=== PATIENT | female | born 1955 | race Caucasian/White ===

== ENCOUNTER 2016-11-20 13:44 | Observation (INO) | payer BC ==
--- NOTE | 2016-11-20 16:22 | ED ---
General Adult HPI - General Chief complaint: Skin/Abscess/Foreign Body Stated complaint: cellulitis Time Seen by Provider: 11/20/16 15:37 Source: patient, RN notes reviewed Mode of arrival: ambulatory Limitations: no limitations - History of Present Illness Initial comments: This is a 61-year-old female who presents with redness, swelling and warmth to the right lower extremity and groin area 2 weeks. Patient states she has been on 3 courses of antibiotics including azithromycin, Augmentin and Keflex but the rash continues to get worse. Patient states this rash is painful especially when walking. Patient states this all started about 2 weeks ago with some right knee pain and redness that she attributed to a past meniscal tear in 2008. Patient states the redness and swelling only got worse after this. Patient states about 4-5 months ago she was scratched by a cat, but this healed completely. Patient denies any ALLERGIES to medications except for acyclovir and cortisone, but she has never had a reaction like this before and has not recently taken these medications. Patient notices a difference in sensation between the right and left lower extremities but states she still has sensation to both lower extremities. Patient denies any recent fever, chills, shortness breath, chest pain, abdominal pain, nausea/vomiting/diarrhea, back pain, numbness, tingling, weakness, hematuria, headache, or visual changes, or any other complaints. - Related Data Home Medications Medication Instructions Recorded Confirmed ALPRAZolam [Xanax] 0.25 mg PO TID PRN 11/20/16 11/20/16 Cephalexin [Keflex] 500 mg PO BID 11/20/16 11/20/16 HYDROcodone/APAP 10-325MG [[place] 1 tab PO TID PRN 11/20/16 11/20/16 10-325] Allergies Allergy/AdvReac Type Severity Reaction Status Date / Time acyclovir [From Zovirax] Allergy Dyspnea Verified 11/20/16 15:57 cortisone Allergy Swelling Verified 11/20/16 15:57 Review of Systems ROS Statement: Those systems with pertinent positive or pertinent negative responses have been documented in the HPI. ROS Other: All systems not noted in ROS Statement are negative. Past Medical History Past Medical History: No Reported History Additional Past Medical History / Comment(s): osteopenia History of Any Multi-Drug Resistant Organisms: None Reported Past Surgical History: Tubal Ligation Past Psychological History: Anxiety Smoking Status: Former smoker Past Alcohol Use History: None Reported Past Drug Use History: None Reported General Exam - General Exam Comments Initial Comments: General: The patient is awake and alert, in no distress, and does not appear acutely ill. Neck: The neck is supple, there is no tenderness or JVD. Cardiovascular: There is a regular rate and rhythm. No murmur, rub or gallop is appreciated. Respiratory: Lungs are clear to auscultation, respirations are non-labored, breath sounds are equal. No wheezes, stridor, rales, or rhonchi. Musculoskeletal: The right lower extremity appears to be larger than the left lower extremity. There is calf tenderness bilaterally. Full range of motion, strength 5/5 and Sensation intact. Posterior tibial pulses are 2+ bilaterally. Capillary refill is less than 2 seconds. Bilateral lower extremities with good coloring. Neurological: A&O x 3. CN II-XII intact, There are no obvious motor or sensory deficits. Coordination appears grossly intact. Speech is normal. Skin: There is a generalized erythema, warmth, blanching rash to the right anterior thigh that extends to the groin area and lower abdomen. There is a smaller patch to the medial left thigh as well. These areas are tender to palpation. There is a minor abrasion to the right knee. Psychiatric: Normal mood and affect. Limitations: no limitations Course Vital Signs 11/20/16 11/20/16 14:09 17:28 Temperature 97.1 F L Pulse Rate 92 77 Respiratory 18 16 Rate Blood Pressure 165/79 137/65 O2 Sat by Pulse 99 100 Oximetry Medical Decision Making - Medical Decision Making This is a 61-year-old female who presents with a rash 2 weeks. On physical exam there is a generalized erythema, warmth, blanching rash to the right anterior thigh that extends to the groin area and lower abdomen. There is a smaller patch to the medial left thigh as well. These areas are tender to palpation. Skin is warm and dry and no rashes or lesions are noted. Patient is afebrile. Patient has failed 3 outpatient antibiotics. Patient had a Doppler of bilateral lower extremities on 11/05/2016 and there was no evidence of acute DVT in bilateral lower extremities. Reported by Dr. Ojeda. Blood cultures are pending. A CBC and CMP were drawn and were within normal limits. Patient will be started on IV Unasyn for cellulitis. The case was discussed with admitting physician Dr. Crowe and patient will be admitted for IV antibiotics. I discussed this case with attending physician Dr. Shaw who also reviewed the patient and agrees with plan as stated above, patient will be admitted as an inpatient. - Lab Data Result diagrams: 11/20/16 17:00 11/20/16 17:00 Lab Results 11/20/16 11/20/16 Range/Units 17:00 17:00 WBC 5.5 (3.8-10.6) k/uL RBC 4.38 (3.80-5.40) m/uL Hgb 13.3 (11.4-16.0) gm/dL Hct 38.9 (34.0-46.0) % MCV 88.7 (80.0-100.0) fL MCH 30.3 (25.0-35.0) pg MCHC 34.1 (31.0-37.0) g/dL RDW 12.7 (11.5-15.5) % Plt Count 223 (150-450) k/uL Neutrophils % 62 % Lymphocytes % 24 % Monocytes % 8 % Eosinophils % 2 % Basophils % 1 % Neutrophils # 3.4 (1.3-7.7) k/uL Lymphocytes # 1.3 (1.0-4.8) k/uL Monocytes # 0.4 (0-1.0) k/uL Eosinophils # 0.1 (0-0.7) k/uL Basophils # 0.1 (0-0.2) k/uL Sodium 141 (137-145) mmol/L Potassium 4.3 (3.5-5.1) mmol/L Chloride 105 (98-107) mmol/L Carbon Dioxide 25 (22-30) mmol/L Anion Gap 11 mmol/L BUN 12 (7-17) mg/dL Creatinine 0.60 (0.52-1.04) mg/dL Est GFR (MDRD) Af Amer >60 (>60 ml/min/1.73 sqM) Est GFR (MDRD) Non-Af >60 (>60 ml/min/1.73 sqM) Glucose 91 (74-99) mg/dL Calcium 9.5 (8.4-10.2) mg/dL Total Bilirubin 0.5 (0.2-1.3) mg/dL AST 32 (14-36) U/L ALT 37 (9-52) U/L Alkaline Phosphatase 73 (38-126) U/L Total Protein 7.3 (6.3-8.2) g/dL Albumin 4.4 (3.5-5.0) g/dL Disposition Clinical Impression: Cellulitis Disposition: ADMITTED IP TO THIS HOSP Condition: Good Referrals: Pratik Hernandez DO [Primary Care Provider] - 1-2 days Decision Time: 18:32
[2016-11-20 17:12] LABS: Basophils # (A) 0.1 k/uL (0-0.2); Basophils % (A) 1 %; CH 30.7; CHCM 34.7; Eosinophils # (A) 0.1 k/uL (0-0.7); Eosinophils % (A) 2 %; HCT 38.9 % (34.0-46.0); HDW 2.16; HGB 13.3 gm/dL (11.4-16.0); Luc # (Auto) 0.18; Luc % (Auto) 3; Lymphocytes # (A) 1.3 k/uL (1.0-4.8); Lymphocytes % (A) 24 %; MCH 30.3 pg (25.0-35.0); MCHC 34.1 g/dL (31.0-37.0); MCV 88.7 fL (80.0-100.0); Mean Platelet Volume 6.8; Monocytes # (A) 0.4 k/uL (0-1.0); Monocytes % (A) 8 %; Neutrophils # (A) 3.4 k/uL (1.3-7.7); Neutrophils % (A) 62 %; RBC 4.38 m/uL (3.80-5.40); RDW 12.7 % (11.5-15.5); WBC 5.5 k/uL (3.8-10.6); WBC (Perox) 5.52
[2016-11-20 17:30] LABS: ALT 37 U/L (9-52); AST 32 U/L (14-36); Alkaline Phosphatase 73 U/L (38-126); Anion Gap 11 mmol/L; Blood Urea Nitrogen 12 mg/dL (7-17); Calcium 9.5 mg/dL (8.4-10.2); Carbon Dioxide 25 mmol/L (22-30); Chloride 105 mmol/L (98-107); Glucose 91 mg/dL (74-99); Non-African American GFR(MDRD) >60 (>60 ml/min/1.73 sqM); Potassium 4.3 mmol/L (3.5-5.1); Sodium 141 mmol/L (137-145); Total Bilirubin 0.5 mg/dL (0.2-1.3); Total Protein 7.3 g/dL (6.3-8.2)
[2016-11-20] MEDS ORDERED: AMPICILLIN-SULBACTAM 3 GM in SODIUM CHLORIDE 0.9% 100 ML IVPB STA (17:38)
[2016-11-20] MEDS ORDERED: NALOXONE 0.4 MG/ML 1 ML VIAL IV PRN (18:05)
[2016-11-20] MEDS ORDERED: ACETAMINOPHEN TAB 325 MG TAB PO PRN (18:05)
[2016-11-20] MEDS ORDERED: HYDROmorphone 1 MG/ML 1 ML SYRINGE IV PRN (18:05)
[2016-11-20] MEDS ORDERED: ONDANSETRON 4 MG/2 ML VIAL IVP PRN (18:05)
[2016-11-20] MEDS ORDERED: ALPRAZolam 0.25 MG TAB PO PRN (18:10)
[2016-11-20] MEDS: SODIUM CHLORIDE 0.9% 1,000 ML IV SCH (19:56)
[2016-11-20] MEDS: IBUPROFEN 400 MG TAB PO PRN (19:57)
[2016-11-21] MEDS: HYDROcodone/APAP 10-325MG 1 EACH TAB PO PRN (01:26)
[2016-11-21] MEDS: IBUPROFEN 400 MG TAB PO PRN ×2 (07:45→19:42)
[2016-11-21 09:07] LABS: Basophils % (A) 1 %; CH 30.4; CHCM 33.7; Eosinophils # (A) 0.1 k/uL (0-0.7); Eosinophils % (A) 3 %; HCT 37.7 % (34.0-46.0); HDW 2.11; HGB 12.4 gm/dL (11.4-16.0); Luc # (Auto) 0.13; Luc % (Auto) 4; Lymphocytes % (A) 28 %; MCH 29.9 pg (25.0-35.0); MCV 90.5 fL (80.0-100.0); Mean Platelet Volume 6.5; Monocytes # (A) 0.3 k/uL (0-1.0); Monocytes % (A) 8 %; Neutrophils # (A) 2.1 k/uL (1.3-7.7); Neutrophils % (A) 57 %; RBC 4.17 m/uL (3.80-5.40); RDW 12.8 % (11.5-15.5); WBC 3.6 k/uL (3.8-10.6); WBC (Perox) 3.75
[2016-11-21 09:15] LABS: ALT 35 U/L (9-52); AST 26 U/L (14-36); Alkaline Phosphatase 62 U/L (38-126); Anion Gap 10 mmol/L; Blood Urea Nitrogen 11 mg/dL (7-17); Calcium 9.3 mg/dL (8.4-10.2); Carbon Dioxide 27 mmol/L (22-30); Chloride 105 mmol/L (98-107); Glucose 97 mg/dL (74-99); Non-African American GFR(MDRD) >60 (>60 ml/min/1.73 sqM); Potassium 4.2 mmol/L (3.5-5.1); Sodium 142 mmol/L (137-145); Total Bilirubin 0.5 mg/dL (0.2-1.3); Total Protein 6.7 g/dL (6.3-8.2)
[2016-11-21] MEDS ORDERED: AMPICILLIN-SULBACTAM 3 GM in SODIUM CHLORIDE 0.9% 100 ML IVPB SCH ×2 (13:00→16:00)
[2016-11-21] MEDS: methylPREDNISolone SOD SUCCI 125 MG/2 ML VIAL IV SCH ×3 (13:37→23:13)
--- NOTE | 2016-11-21 16:53 | CONS ---
DATE OF CONSULTATION: 11/21/2016 REASON FOR CONSULTATION: Right thigh and groin area cellulitis. HISTORY OF PRESENT ILLNESS: Patient presented to the ER with the chief complaints of right thigh and groin area swelling and redness. Apparently this has been going on for the last 2 weeks. Patient has been previously treated with a course of azithromycin, Augmentin and Keflex. Patient said that he started getting better with Augmentin; however, the moment she finished the antibiotic it became more swollen and red. The patient did mention she has been scratched by her cat. Patient did have some chills. Denies any high-grade fever. Patient denies having any chest pain or shortness of breath or cough. No abdominal pain. Patient denies shaving her pelvic area or any rash in the groin. Patient subsequently has been started on Unasyn. I was asked to see the patient for further recommendations regarding antibiotic therapy. The patient as far as swelling and redness seems to have improved, though. The patient denies having any chest pain. No shortness of breath or cough and no abdominal pain or any diarrhea. REVIEW OF SYSTEMS: CONSTITUTIONAL: Positive for weakness and some chills. EYES: No complaint. ENT: No complaint. RESPIRATORY: No complaint. CARDIOVASCULAR: No complaint. GENITOURINARY: No complaint. GASTROINTESTINAL: No complaint. MUSCULOSKELETAL: No complaint. INTEGUMENTARY: As per HPI. PSYCHOLOGIC: No complaint. ENDOCRINE: No complaint. NEUROLOGIC: No complaint. Past medical history is significant for: 1. Anxiety. 2. Cellulitis. 3. Osteopenia. PAST SURGICAL HISTORY: No major surgery. SOCIAL HISTORY: Remote history of smoking. No drinking or drug use. FAMILY HISTORY: No pertinent findings were noticed. ALLERGIES: ACYCLOVIR and CORTISONE. Medications currently include: 1. Tylenol. 2. [place]. 3. Xanax. 4. Unasyn 3 grams q.8. 5. Dilaudid. 6. Motrin. 7. Melatonin. 8. Solu-Medrol. 9. Narcan. 10. Zofran. On examination, blood pressure is 150/80 with a pulse of 72, temperature 96.8. She is 98% on room air. General description is a middle-aged female lying in bed in no distress. No tachypnea or accessory muscle of respiration use. HEENT examination shows no pallor or scleral icterus. Oral mucous membrane is dry. NECK: Trachea is central. No thyromegaly. LUNGS: Unlabored breathing. Clear to auscultation anteriorly. HEART: S1, S2. Regular rate and rhythm. ABDOMEN: Soft. No tenderness. RIGHT LEG: The thigh area swelling and redness have receded from the line that was placed yesterday. A small scratch geraldo just above the knee area. There is no evidence of any pubic area folliculitis or groin area cutaneous skin disease. Neurologically the patient is awake, alert, oriented x3. Mood and affect normal. LABS: Hemoglobin is 12.4, white count of 3.6 with a BUN of 11, creatinine 0.68. DIAGNOSTIC IMPRESSION AND PLAN: Patient with acute left thigh and lower abdominal area cellulitis with a history of possible cat scratch. Seems to be responding to the Unasyn, more likely the causative agent. Clinically doubt staph or MRSA, as there is no evidence of any groin area cutaneous candidiasis. PLAN: 1. Unasyn 3 grams; however, the dose to be adjusted to q.6, as the patient does have normal kidney function. 2. Will follow up on the clinical condition and cultures to further adjust medication if needed. If the patient continues to improve, plan will be to finish therapy with Augmentin 875 b.i.d. for at least weeks with close outpatient followup. MTDD
[2016-11-21] MEDS: SODIUM CHLORIDE 0.9% 1,000 ML IV SCH (18:03)
[2016-11-21] MEDS: AMPICILLIN-SULBACTAM 3 GM in SODIUM CHLORIDE 0.9% 100 ML IVPB SCH ×2 (18:03→23:16)
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
[2016-11-22] MEDS: IBUPROFEN 400 MG TAB PO PRN (01:43)
[2016-11-22] MEDS: MELATONIN 3 MG TABLET PO SCH ×2 (03:55→21:41)
[2016-11-22] MEDS: AMPICILLIN-SULBACTAM 3 GM in SODIUM CHLORIDE 0.9% 100 ML IVPB SCH ×2 (05:19→11:43)
[2016-11-22] MEDS: HYDROcodone/APAP 10-325MG 1 EACH TAB PO PRN (14:20)
[2016-11-22] MEDS ORDERED: RX INFO: IV CONTRAST WAS GIVEN 1 EACH MISC MISCELLANE PRN (17:56)
[2016-11-22] MEDS ORDERED: IOHEXOL 350 MG/ML 25 ML BOTTLE (ORAL USE) PO PRN (17:56)
[2016-11-22] MEDS: IBUPROFEN 600 MG TAB PO SCH ×2 (18:25→21:41)
[2016-11-22] MEDS: SODIUM CHLORIDE 0.9% 1,000 ML IV SCH (18:26)
--- NOTE | 2016-11-22 18:47 | P.PN ---
Subjective Principal diagnosis: Cellulitis right leg Very pleasant 61-year-old woman who normally follows with Dr. Hernandez presents to the emergency center with ongoing difficulties to her right thigh. She relates that several weeks ago her cat was on her lab and did cause a scratch to her thigh. She she with a course of outpatient antibiotic therapy with Augmentin from her primary care physician. However since that time she's been having ongoing difficulties with significant swelling erythema and pain to the right thigh. A presentation of the hospital after courses of antibiotic therapy included Augmentin, Keflex and his azithromycin she developed worsening pain and swelling to the upper right thigh. It goes across her pelvis across the mons pubis and onto the left groin area. She has been living in pain and discomfort in this region. It is no better today than it was yesterday. She feels that she has a low-grade fever and chill but is not having mateuzs rigors. He is very anxious to have this improved because she is going out of the country in the next few weeks. Objective - Vital Signs Vital signs: Vital Signs Temp 97.7 F 11/22/16 15:00 Pulse 108 H 11/22/16 16:54 Resp 16 11/22/16 16:54 BP 171/86 11/22/16 15:00 Pulse Ox 99 11/22/16 15:00 Intake & Output 11/21/16 11/22/16 11/22/16 18:59 06:59 18:59 Intake Total 480 Balance 480 Intake: Oral 480 Other: Voiding Method Toilet Toilet Toilet # Voids 3 2 1 - Exam Pleasant 61-year-old woman in no acute distress HEENT: Anicteric conjunctiva are pink and moist nasal mucosa grossly intact without significant lesions, there is no thrush. Neck: The neck is supple without significant lymphadenopathy or thyromegaly. Lungs: Good bilateral air entry without significant crackles or wheezing. There is no significant bronchial sounds. There is no egophony or dullness. Heart: Regular rate and rhythm with an audible S1-S2, no S3 no S4. There is no significant murmur click or rub, PMI was nondisplaced. Abdomen: Positive bowel sounds soft and nontender without palpable masses or organomegaly. There was no guarding or rebound. Extremities: The upper extremities are intact. The IV site is intact. The left leg is generally normal except right at the thigh fold. Or there is a mild amount of erythema without significant lymphadenopathy. Abdominal wall across the mons pubis and onto the right upper thigh. There is some significant erythema. There is tenderness in tissue swelling. It is very tender to this region. Upper thigh and the right is quite tender. There is no palpable abscess. But there is some dense erythema that ascends over the right thigh fold. He does not descend beyond the upper aspect of the thigh. She has has some discomfort of the right knee where she apparently has some internal derangement and needs surgery in the future. Neuro: Awake alert oriented to person place and time. There are no acute new gross focal sensory motor deficits. - Labs CBC & Chem 7: 11/21/16 08:31 11/21/16 08:31 Labs: Laboratory Results WBC 3.6 k/uL (3.8-10.6) L 11/21/16 08: RBC 4.17 m/uL (3.80-5.40) 11/21/16 08: Hgb 12.4 gm/dL (11.4-16.0) 11/21/16 08: Hct 37.7 % (34.0-46.0) 11/21/16 08: MCV 90.5 fL (80.0-100.0) 11/21/16 08: MCH 29.9 pg (25.0-35.0) 11/21/16 08: MCHC 33.0 g/dL (31.0-37.0) 11/21/16 08: RDW 12.8 % (11.5-15.5) 11/21/16 08:31 Plt Count 192 k/uL (150-450) 11/21/16 08:31 Neutrophils % 57 % 11/21/16 08:31 Lymphocytes % 28 % 11/21/16 08:31 Monocytes % 8 % 11/21/16 08: Eosinophils % 3 % 11/21/16 08: Basophils % 1 % 11/21/16 08:31 Neutrophils # 2.1 k/uL (1.3-7.7) 11/21/16 08: Lymphocytes # 1.0 k/uL (1.0-4.8) 11/21/16 08: Monocytes # 0.3 k/uL (0-1.0) 11/21/16 08:31 Eosinophils # 0.1 k/uL (0-0.7) 11/21/16 08:31 Basophils # 0.0 k/uL (0-0.2) 11/21/16 08:31 Sodium 142 mmol/L (137-145) 11/21/16 08:31 Potassium 4.2 mmol/L (3.5-5.1) 11/21/16 08:31 Chloride 105 mmol/L (98-107) 11/21/16 08:31 Carbon Dioxide 27 mmol/L (22-30) 11/21/16 08:31 Anion Gap 10 mmol/L 11/21/16 08:31 BUN 11 mg/dL (7-17) 11/21/16 08:31 Creatinine 0.68 mg/dL (0.52-1.04) 11/21/16 08:31 Est GFR (MDRD) Af Amer >60 (>60 ml/min/1.73 sqM) 11/21/16 08:31 Est GFR (MDRD) Non-Af >60 (>60 ml/min/1.73 sqM) 11/21/16 08:31 Glucose 97 mg/dL (74-99) 11/21/16 08:31 Calcium 9.3 mg/dL (8.4-10.2) 11/21/16 08:31 Total Bilirubin 0.5 mg/dL (0.2-1.3) 11/21/16 08:31 AST 26 U/L (14-36) 11/21/16 08:31 ALT 35 U/L (9-52) 11/21/16 08:31 Alkaline Phosphatase 62 U/L (38-126) 11/21/16 08:31 Total Protein 6.7 g/dL (6.3-8.2) 11/21/16 08:31 Albumin 4.0 g/dL (3.5-5.0) 11/21/16 08:31 Microbiology 11/20/16 17:00 Blood Blood Culture - Preliminary No Growth after 24 hours Assessment and Plan (1) Cellulitis of right thigh Narrative/Plan: Very pleasant 61-year-old woman who has a pet cat. In general she's had no difficulty with the animal. Apparently it was on her lab and cause a small scratch to upper thigh was treated with antibiotic therapy. Despite that she's been having ongoing difficulties with some pain and swelling to the right side. No despite several courses of antibiotic therapy is now much worse. His erythema on the upper thigh. It is warm and hot. It extends across the upper aspect of the thigh across the mons pubis into the left groin area. The entire area is warm to touch, with erythema in distinct tenderness. She had outpatient Doppler study without evidence of deep venous thrombosis which she was concerned about because she has a history of a prior DVT. At this time we'll alter antibiotic therapy to go for more resistant pathogens to Ceftaroline. Bartonella titers are requested. Local pain control should be continued. She does not like pain medicines very well. If of antibiotic changers had a rapid improvement to this site. A computed tomography scan of her pelvis should be performed to ensure there is no other pathology occurring in this region resulting in the somewhat atypical pattern of a cellulitis to this area. For the leukopenia the change of antibiotic therapy should assist with this improvement. High-dose penicillin sometimes do cause leukopenia. Status: Acute (2) Fever Status: Acute (3) Bilateral groin pain Status: Acute (4) Leukopenia Status: Acute
--- NOTE | 2016-11-22 20:48 | CT ---
EXAMINATION TYPE: CT abdomen pelvis w con DATE OF EXAM: 11/22/2016 8:29 PM COMPARISON: NONE HISTORY: Cellulitis to lower abdomen and pelvis. CT DLP: 645.80 mGycm Automated exposure control for dose reduction was used. CONTRAST: Performed with Oral Contrast and with IV Contrast, patient injected with 100 mL of Omnipaque 300. FINDINGS: Lung bases are clear. There is no pleural effusion. There is a small area of subsegmental atelectasis in the right lower lobe. Heart size is normal. The liver or spleen pancreas gallbladder appear normal. Bile ducts are nondilated. There is no adrena l mass. Kidneys show satisfactory contrast opacification. There is no hydronephrosis. There are retro peritoneal and retrocrural lymph nodes that measure up to 1.5 cm.. Bladder distends smoothly. There i s mild subcutaneous edema over the anterior lower abdomen. There is no sign of intestinal obstruction . There is no bowel wall thickening. Appendix appears normal. There is no ascites. There is no sign o f a pelvic mass. There is no evidence of a hernia. I see no bony destructive process. Lumbar spine is intact. There are multiple enlarged inguinal lymph nodes that measure up to almost 3 cm. IMPRESSION: THERE IS MILD SUBCUTANEOUS EDEMA OVER THE LOWER ANTERIOR ABDOMEN. NORMAL APPENDIX. THERE ARE MILD ABD OMINAL PERIAORTIC LYMPH NODES AND RETROCRURAL LYMPH NODES THAT MEASURE UP TO 1 CM OF UNCERTAIN SIGNIF ICANCE. There are multiple bilateral enlarged inguinal lymph nodes. Clinical correlation is recommend ed. This could be an early manifestation of lymphoma.
[2016-11-22] MEDS: CEFTAROLINE FOSAMIL 600 MG in SODIUM CHLORIDE 0.9% 250 ML IVPB SCH (21:41)
[2016-11-23] MEDS: CEFTAROLINE FOSAMIL 600 MG in SODIUM CHLORIDE 0.9% 250 ML IVPB SCH ×2 (08:22→22:31)
[2016-11-23] MEDS: IBUPROFEN 600 MG TAB PO SCH ×4 (08:22→22:34)
[2016-11-23 09:15] LABS: Basophils % (A) 0 %; CH 30.4; CHCM 33.6; Eosinophils # (A) 0.1 k/uL (0-0.7); Eosinophils % (A) 1 %; HCT 35.5 % (34.0-46.0); HDW 2.11; Luc # (Auto) 0.15; Luc % (Auto) 2; Lymphocytes # (A) 1.5 k/uL (1.0-4.8); Lymphocytes % (A) 23 %; MCH 30.6 pg (25.0-35.0); MCHC 33.7 g/dL (31.0-37.0); MCV 90.7 fL (80.0-100.0); Mean Platelet Volume 6.9; Monocytes # (A) 0.5 k/uL (0-1.0); Monocytes % (A) 8 %; Neutrophils # (A) 4.1 k/uL (1.3-7.7); Neutrophils % (A) 65 %; RBC 3.92 m/uL (3.80-5.40); RDW 12.7 % (11.5-15.5); WBC 6.4 k/uL (3.8-10.6); WBC (Perox) 6.92
[2016-11-23 09:31] LABS: ALT 33 U/L (9-52); AST 27 U/L (14-36); Alkaline Phosphatase 53 U/L (38-126); Anion Gap 11 mmol/L; Blood Urea Nitrogen 13 mg/dL (7-17); Calcium 9.1 mg/dL (8.4-10.2); Carbon Dioxide 25 mmol/L (22-30); Chloride 107 mmol/L (98-107); Glucose 87 mg/dL (74-99); Non-African American GFR(MDRD) >60 (>60 ml/min/1.73 sqM); Potassium 3.9 mmol/L (3.5-5.1); Sodium 143 mmol/L (137-145); Total Bilirubin 0.5 mg/dL (0.2-1.3); Total Protein 6.5 g/dL (6.3-8.2)
[2016-11-23 11:05] LABS: Erythrocyte Sedimentation Rate 8 mm/hr (0-20)
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
[2016-11-23] MEDS: ALPRAZolam 0.5 MG TAB PO SCH ×3 (12:09→22:31)
[2016-11-23] MEDS: SODIUM CHLORIDE 0.9% 1,000 ML IV SCH (18:17)
[2016-11-23] MEDS: MELATONIN 3 MG TABLET PO SCH (22:31)
--- NOTE | 2016-11-23 23:58 | P.PN ---
Subjective Principal diagnosis: Cellulitis right leg Very pleasant 61-year-old woman who normally follows with Dr. Hernandez presents to the emergency center with ongoing difficulties to her right thigh. She relates that several weeks ago her cat was on her lab and did cause a scratch to her thigh. She she with a course of outpatient antibiotic therapy with Augmentin from her primary care physician. However since that time she's been having ongoing difficulties with significant swelling erythema and pain to the right thigh. A presentation of the hospital after courses of antibiotic therapy included Augmentin, Keflex and his azithromycin she developed worsening pain and swelling to the upper right thigh. It goes across her pelvis across the mons pubis and onto the left groin area. She has been living in pain and discomfort in this region. It is no better today than it was yesterday. She feels that she has a low-grade fever and chill but is not having mateusz rigors. she is very anxious to have this improved because she is going out of the country in the next few weeks. Due to the somewhat atypical presentation [facility] has agreed to the computed tomography scan. This has not come back and is quite abnormal. Objective - Vital Signs Vital signs: Vital Signs Temp 97.2 F L 11/23/16 15:00 Pulse 70 11/23/16 15:00 Resp 16 11/23/16 15:00 BP 135/75 11/23/16 15:00 Pulse Ox 98 11/23/16 15:00 Intake & Output 11/23/16 11/23/16 11/24/16 06:59 18:59 06:59 Intake Total 690 240 Balance 690 240 Intake: Oral 690 240 Other: Voiding Method Toilet Toilet Toilet # Voids 2 2 # Bowel Movements 0 - Exam Pleasant 61-year-old woman in no acute distress HEENT: Anicteric conjunctiva are pink and moist nasal mucosa grossly intact without significant lesions, there is no thrush. Neck: The neck is supple without significant lymphadenopathy or thyromegaly. Lungs: Good bilateral air entry without significant crackles or wheezing. There is no significant bronchial sounds. There is no egophony or dullness. Heart: Regular rate and rhythm with an audible S1-S2, no S3 no S4. There is no significant murmur click or rub, PMI was nondisplaced. Abdomen: Positive bowel sounds soft and nontender without palpable masses or organomegaly. There was no guarding or rebound. Extremities: The upper extremities are intact. The IV site is intact. The left leg is generally normal except right at the thigh fold. Or there is a mild amount of erythema with significant lymphadenopathy. Abdominal wall across the mons pubis and onto the right upper thigh. There is some significant erythema. There is tenderness in tissue swelling. It is very tender to this region. Upper thigh and the right is quite tender. There is no palpable abscess. But there is some dense erythema that ascends over the right thigh fold. He does not descend beyond the upper aspect of the thigh. She has has some discomfort of the right knee where she apparently has some internal derangement and needs surgery in the future. Neuro: Awake alert oriented to person place and time. There are no acute new gross focal sensory motor deficits. - Labs CBC & Chem 7: 11/23/16 08:54 11/23/16 08:54 Labs: Laboratory Results WBC 6.4 k/uL (3.8-10.6) 11/23/16 08:54 RBC 3.92 m/uL (3.80-5.40) 11/23/16 08:54 Hgb 12.0 gm/dL (11.4-16.0) 11/23/16 08:54 Hct 35.5 % (34.0-46.0) 11/23/16 08:54 MCV 90.7 fL (80.0-100.0) 11/23/16 08:54 MCH 30.6 pg (25.0-35.0) 11/23/16 08:54 MCHC 33.7 g/dL (31.0-37.0) 11/23/16 08:54 RDW 12.7 % (11.5-15.5) 11/23/16 08:54 Plt Count 215 k/uL (150-450) 11/23/16 08:54 Neutrophils % 65 % 11/23/16 08:54 Lymphocytes % 23 % 11/23/16 08:54 Monocytes % 8 % 11/23/16 08:54 Eosinophils % 1 % 11/23/16 08:54 Basophils % 0 % 11/23/16 08:54 Neutrophils # 4.1 k/uL (1.3-7.7) 11/23/16 08:54 Lymphocytes # 1.5 k/uL (1.0-4.8) 11/23/16 08:54 Monocytes # 0.5 k/uL (0-1.0) 11/23/16 08:54 Eosinophils # 0.1 k/uL (0-0.7) 11/23/16 08:54 Basophils # 0.0 k/uL (0-0.2) 11/23/16 08:54 ESR 8 mm/hr (0-20) 11/23/16 08:54 Sodium 143 mmol/L (137-145) 11/23/16 08:54 Potassium 3.9 mmol/L (3.5-5.1) 11/23/16 08:54 Chloride 107 mmol/L (98-107) 11/23/16 08:54 Carbon Dioxide 25 mmol/L (22-30) 11/23/16 08:54 Anion Gap 11 mmol/L 11/23/16 08:54 BUN 13 mg/dL (7-17) 11/23/16 08:54 Creatinine 0.74 mg/dL (0.52-1.04) 11/23/16 08:54 Est GFR (MDRD) Af Amer >60 (>60 ml/min/1.73 sqM) 11/23/16 08:54 Est GFR (MDRD) Non-Af >60 (>60 ml/min/1.73 sqM) 11/23/16 08:54 Glucose 87 mg/dL (74-99) 11/23/16 08:54 Calcium 9.1 mg/dL (8.4-10.2) 11/23/16 08:54 Total Bilirubin 0.5 mg/dL (0.2-1.3) 11/23/16 08:54 AST 27 U/L (14-36) 11/23/16 08:54 ALT 33 U/L (9-52) 11/23/16 08:54 Alkaline Phosphatase 53 U/L (38-126) 11/23/16 08:54 Total Protein 6.5 g/dL (6.3-8.2) 11/23/16 08:54 Albumin 3.8 g/dL (3.5-5.0) 11/23/16 08:54 Microbiology 11/20/16 17:00 Blood Blood Culture - Preliminary No Growth after 72 hours Assessment and Plan (1) Cellulitis of right thigh Narrative/Plan: Very pleasant 61-year-old woman who has a pet cat. In general she's had no difficulty with the animal. Apparently it was on her lab and cause a small scratch to upper thigh was treated with antibiotic therapy. Despite that she's been having ongoing difficulties with some pain and swelling to the right side. No despite several courses of antibiotic therapy is now much worse. His erythema on the upper thigh. It is warm and hot. It extends across the upper aspect of the thigh across the mons pubis into the left groin area. The entire area is warm to touch, with erythema in distinct tenderness. She had outpatient Doppler study without evidence of deep venous thrombosis which she was concerned about because she has a history of a prior DVT. At this time we'll alter antibiotic therapy to go for more resistant pathogens to Ceftaroline. Bartonella titers are requested. Local pain control should be continued. She does not like pain medicines very well. The patient is having no difficulties with the Ceftaroline therapy. And as noted the pattern is somewhat unusual for routine cellulitis. She's now had a computed tomography scan it's been performed. She is evidence of significant abnormal lymph nodes within the region that do cross the midline. There is also some lymphadenopathy in the deep pelvis. Because of this concern as to infectious versus noninfectious etiology such as lymphoma is considered. She does have a history of a Scratch. Bartonella infection is still of some consideration. This however is certainly a very atypical presentation. Other disease states her considered including lymphoma. And constantly biopsy of a lymph node is important at this point in time. A full lymph node needs to be removed for complete analysis of its morphology. And by the computed tomography scan there are many good candidates available. Dr. Rene has been consulted. the leukopenia that was noted yesterday has resolved. Status: Acute (2) Fever Status: Acute (3) Bilateral groin pain Status: Acute (4) Leukopenia Status: Acute
[2016-11-24] MEDS: ALPRAZolam 0.5 MG TAB PO SCH ×3 (08:00→21:30)
[2016-11-24] MEDS: IBUPROFEN 600 MG TAB PO SCH ×3 (08:01→17:08)
[2016-11-24] MEDS: CEFTAROLINE FOSAMIL 600 MG in SODIUM CHLORIDE 0.9% 250 ML IVPB SCH ×2 (08:01→20:24)
--- NOTE | 2016-11-24 08:29 | PN ---
INTERVAL HISTORY: The patient continued to be hemodynamically stable overnight. No major events reported by nursing staff except for patient has been threatening the staff that she is going to taina them to the government if they do not do a good job as the patient feels that nobody is doing anything correct for her. at the bedside and the patient herself admits agreement with the current treatment plan. After long discussion and they say that they are happy with the progress of her management. Dr. Howe stopped by yesterday after I left the room and changed the antibiotic regimen and patient and aware and agreeable to the current treatment plan. CT scan results discussed with the patient and her at length and they are aware with a need for close follow up as outpatient with primary care physician. PHYSICAL EXAMINATION: VITAL SIGNS: 97.7, heart rate of 75, respiratory rate 16, blood pressure 126/71, saturation is 98% on room air. GENERAL: In her stated age, seems to be anxious and restless, in mild distress. HEENT: Atraumatic, normocephalic. PERRLA. NECK: The neck supple, no masses. No thyromegaly. LUNGS: Clear to auscultation bilaterally. HEART: S1, S2. ABDOMEN: Soft, nontender, ( ) bowel sounds all four quadrants. The lower abdomen area and close to the upper thigh, seems to be less tender than yesterday when I examined the patient and performed some distraction skills ( ) maneuvers by taking deep breath the patient was not tender to touch in that area. SKIN: Positive for decreased erythema from prior marked and clearing of skin erythema. No obvious drainage or skin break noticed. Pulses are positive in all 4 extremities. IMAGING AND LABS: CBC reveals normal findings. Chem-7 reveals normal findings entirely. Liver function test is normal. Albumin level is normal. Blood cultures are still pending, negative. CT Scan of the abdomen with oral and IV contrast revealed mild subcutaneous edema over the lower anterior abdomen. Normal appendix. There are mild abdominal periaortic lymph nodes and retropleural lymph nodes that measures up to 1 cm of uncertain significant and there are multiple bilateral enlarged inguinal lymph nodes. ASSESSMENT AND PLAN: 1. Abdominal wall cellulitis and the right upper thigh cellulitis with lymphangitis and lymphedema of the right thigh. The patient currently is receiving broad spectrum antibiotics. CT scan discussed with the patient and her at the bedside. Clinical signs of improvement noticed on physical examination but the patient seems to be very anxious and concerned about her condition given the multiple outpatient treatment failure with multiple doses of antibiotics and ongoing lymphadenopathy. I would like to continue with current antibiotics regimen and follow-up on the final culture results and consult oncology regarding CT scan findings and have the patient follow-up with her primary care physician to repeat the CT scan to ensure the stability of those lymph nodes. 2. Abdominal pain seems to be improved. We will continue current pain regimen. 3. Anxiety. The patient states that she takes Xanax 2 mg when she needs it at home. Agreed that she is in mild distress and she would like to use 1 mg Xanax 3 times daily and agreed as well. 4. Chronic back pain seems to be under fair control. 5. Obesity. The patient counseled regarding weight loss. 6. Deep venous thrombosis prophylaxis. I will continue Lovenox. 7. Discharge planning based on clinical progress.
[2016-11-24] MEDS ORDERED: ENOXAPARIN 40 MG/0.4 ML SYRINGE SQ SCH (09:30)
--- NOTE | 2016-11-24 12:10 | P.GSCN ---
History of Present Illness Consult date: 11/24/16 History of present illness: Patient is a 61-year-old woman who presented to the emergency room with persistent cellulitis of her right thigh. This has been ongoing for several weeks and she was treated with outpatient antibiotic therapy without resolution. She has been treated with Augmentin, Keflex, and azithromycin,. The erythema appeared to spread across TURP pelvis and into her left groin. She additionally complains of pain and discomfort in the area. She has had a low-grade fever as well. She underwent a computed tomography scan. The patient was noted to have mild subcu edema over the lower anterior abdomen. Mild abdominal periaortic lymph nodes and retrocrural lymph nodes that measure up to 1 cm. Multiple bilateral enlarged inguinal lymph nodes. There is question that this could be an early manifestation of lymphoma. Review of systems: HEENT negative Heart negative GI negative Respiratory negative Review of Systems - Constitutional Reports as per HPI - Cardiovascular Reports as per HPI - Respiratory Reports as per HPI - Gastrointestinal Reports as per HPI - Musculoskeletal Reports as per HPI Past Medical History Past Medical History: Deep Vein Thrombosis (DVT), GERD/Reflux, Osteoarthritis ( OA) Additional Past Medical History / Comment(s): osteopenia, DIVERTICULAR DIEASE, PEPTIC ULCER, RT LEG DVT, DDD, BULGING DISC,CHRONIC NECK/BACK PAIN, TORN RT MENISCUS, TMJ. History of Any Multi-Drug Resistant Organisms: None Reported Past Surgical History: Tubal Ligation Additional Past Surgical History / Comment(s): EGD/COLONOSCOPY, DENTAL IMPLANTS Past Anesthesia/Blood Transfusion Reactions: Previous Problems w/ Anesthesia Additional Past Anesthesia/Blood Transfusion Reaction / Comm: WOKE UP DURING SX Past Psychological History: Anxiety Smoking Status: Former smoker Past Alcohol Use History: None Reported Additional Past Alcohol Use History / Comment(s): SMOKED FOR 5 YEARS QUIT AT AGE 21 Past Drug Use History: None Reported - Past Family History Mother Family Medical History: Cancer, Hypertension Additional Family Medical History / Comment(s): BREAST, COLON,SKIN CANCER Father Family Medical History: Cancer Additional Family Medical History / Comment(s): PROSTATE CANCER, POLIO, HEART DISEASE Sister(s) Family Medical History: Neurologic Disorder (Seizures) Medications and Allergies Home Medications Medication Instructions Recorded Confirmed Type ALPRAZolam [Xanax] 1 mg PO TID PRN 11/20/16 11/21/16 History Cephalexin [Keflex] 500 mg PO BID 11/20/16 11/20/16 History HYDROcodone/APAP 10-325MG [[place] 1 tab PO TID PRN 11/20/16 11/20/16 History 10-325] Allergies Allergy/AdvReac Type Severity Reaction Status Date / Time acyclovir [From Zovirax] Allergy Dyspnea Verified 11/20/16 15:57 cortisone Allergy Swelling Verified 11/20/16 15:57 Surgical - Exam Vital Signs Temp Pulse Resp BP Pulse Ox 97.1 F L 92 18 165/79 99 11/20/16 14:09 11/20/16 14:09 11/20/16 14:09 11/20/16 14:09 11/20/16 14:09 - General well developed, well nourished - Neck no masses, trachea midline, no lymphadectomy, no venous distension - Respiratory normal expansion, normal respiratory effort, clear to auscultation - Cardiovascular Rhythm: regular Heart Sounds: normal: S1, S2 - Abdomen Abdomen: soft, non tender, bowel sounds - Integumentary Mild erythema right upper thigh extending across the midline towards the left upper thigh In the supra patient right upper thigh No definite groin adenopathy palpable No cervical adenopathy of concern palpable No axillary adenopathy of concern palpable Liver does not appear enlarged Spleen does not appear enlarged Results - Labs 11/23/16 08:54 11/23/16 08:54 Assessment and Plan Plan: Impression/plan: 1. Exercise cellulitis with lymphangitis and lymphedema of the right thigh Lumbar disc disease Osteoarthritis for which she is scheduled to have a right total knee arthroplasty in May Plan: 1. Will review computed tomography scan 2. As per CT concerns as to whether this may be an unusual presentation of lymphoma patient may require lymph node biopsy
[2016-11-24] MEDS: HYDROcodone/APAP 10-325MG 1 EACH TAB PO PRN (13:33)
[2016-11-24] MEDS: SODIUM CHLORIDE 0.9% 1,000 ML IV SCH (17:08)
--- NOTE | 2016-11-24 19:04 | P.CONS ---
History of Present Illness - Reason for Consult Consult date: 11/24/16 lymphadenopathy Requesting physician: Sanjana Francisco - Chief Complaint persistent right groin/thigh and suprapubic pain and redness - History of Present Illness Mrs. Best is a very pleasant 61 year old female pt who had a right knee injury over the summer. About 2 months ago the pain in her knee started to radiate to the medical thigh area, she was treated with abx but then the pain and swelling continued to progress into the groin and to the suprapubic area, it is painful to the touch, red and warm. Pt denied fever, numbness, tingling, dysuria, hematuria. Pt denies night sweats, unintentional wt. loss, anoraxia, dysphagia, nausea or vomiting, cough, SOB, changes in bowel or bladder habits, denies any changes in her energy levels or stamina, she is in her usual state of health, she is active. She has had EGD and colonoscopy with Dr. Willis, she is on 5 year f/u with colonoscopy as she has had polypectomy, she is current on her mamogram, last PAP was [address] Tony. Review of Systems All systems: negative Constitutional: Reports as per HPI Past Medical History Past Medical History: Deep Vein Thrombosis (DVT), GERD/Reflux, Osteoarthritis ( OA) Additional Past Medical History / Comment(s): osteopenia, DIVERTICULAR DIEASE, PEPTIC ULCER, RT LEG DVT, DDD, BULGING DISC,CHRONIC NECK/BACK PAIN, TORN RT MENISCUS, TMJ. History of Any Multi-Drug Resistant Organisms: None Reported Past Surgical History: Tubal Ligation Additional Past Surgical History / Comment(s): EGD, COLONOSCOPY with polpyectomy -on 5 year follow up, DENTAL IMPLANTS Past Anesthesia/Blood Transfusion Reactions: Previous Problems w/ Anesthesia Additional Past Anesthesia/Blood Transfusion Reaction / Comm: WOKE UP DURING SX Past Psychological History: Anxiety Smoking Status: Former smoker Past Alcohol Use History: None Reported Additional Past Alcohol Use History / Comment(s): SMOKED FOR 5 YEARS QUIT AT AGE 21 Past Drug Use History: None Reported - Past Family History Mother Family Medical History: Cancer, Hypertension Additional Family Medical History / Comment(s): BREAST, COLON,SKIN CANCER Father Family Medical History: Cancer Additional Family Medical History / Comment(s): PROSTATE CANCER, POLIO, HEART DISEASE Sister(s) Family Medical History: Neurologic Disorder (Seizures) Medications and Allergies Home Medications Medication Instructions Recorded Confirmed Type ALPRAZolam [Xanax] 1 mg PO TID PRN 11/20/16 11/21/16 History Cephalexin [Keflex] 500 mg PO BID 11/20/16 11/20/16 History HYDROcodone/APAP 10-325MG [[place] 1 tab PO TID PRN 11/20/16 11/20/16 History 10-325] Allergies Allergy/AdvReac Type Severity Reaction Status Date / Time acyclovir [From Zovirax] Allergy Dyspnea Verified 11/20/16 15:57 cortisone Allergy Swelling Verified 11/20/16 15:57 Physical Exam Vitals: Vital Signs Temp Pulse Resp BP Pulse Ox 11/24/16 15:00 97.6 F 87 16 105/67 96 11/24/16 07:00 96.4 F L 68 18 138/72 98 11/24/16 05:05 18 91 L 11/23/16 23:00 96.9 F L 68 16 119/69 98 Intake and Output 11/24/16 11/24/16 11/24/16 06:59 14:59 22:59 Other: Voiding Method Toilet Toilet Toilet # Voids 2 4 - Constitutional General appearance: average body habitus, cooperative, no acute distress - EENT Eyes: anicteric sclerae, EOMI, normal appearance ENT: hearing grossly normal, normal oropharynx - Neck no cervical, supraclavicular or axillary adenopathy - Respiratory Respiratory: bilateral: CTA - Cardiovascular Rhythm: regular Heart sounds: normal: S1, S2 Abnormal Heart Sounds: no systolic murmur, no diastolic murmur, no rub, no S3 Gallop, no S4 Gallop, no click, no other leg Peripheral Edema: right: 2+, left: None - Gastrointestinal General gastrointestinal: no absent bowel sounds, no decreased bowel sounds, no distended, no hepatomegaly, no hyperactive bowel sounds, normal bowel sounds, no organomegaly, no rigid, no scaphoid, soft, no splenomegaly, no tenderness, no umbilical hernia, no ventral hernia - Genitourinary medial right thigh, right groin and suprapubic area red, visibly swollen and warm to touch, painful. Left inguinal lymph node, 2cm, hard, fixed. - Integumentary Integumentary: normal - Neurologic Neurologic: CNII-XII intact - Musculoskeletal Musculoskeletal: strength equal bilaterally - Psychiatric Psychiatric: A&O x's 3, appropriate affect, intact judgment & insight Results CBC & Chem 7: 11/23/16 08:54 11/23/16 08:54 CT scan - abdomen: report reviewed CT scan - pelvis: report reviewed Assessment and Plan (1) Lymphadenopathy, abdominal Status: Acute (2) Lymphadenopathy of other site Status: Acute Plan: Case discussed with Dr. Elder. Infectious cause of lymphadenopathy is in the differential but due to size of inguinal lymph nodes pathology other then infection needs to be considered. Would recommend evaluation of left inguinal lymph node for excision as the left side is not as involved with the swelling and redness that may be related to infection. Pt has refused lovenox per nursing, have asked motrin to be held.
[2016-11-24] MEDS: MELATONIN 3 MG TABLET PO SCH (20:24)
[2016-11-25] MEDS: ALPRAZolam 0.5 MG TAB PO SCH ×3 (07:59→23:00)
--- NOTE | 2016-11-25 08:26 | PN ---
INTERVAL HISTORY: The patient believes that she is having improvement in her right upper thigh and lower abdomen erythema and tenderness. Stop ( ) yesterday and felt slightly better. Patient is [id number] currently any chest pain, shortness of breath, nausea, vomiting, abdominal pain, dizziness or lightheadedness. PHYSICAL EXAMINATION: VITAL SIGNS: Reviewed and stable. LUNGS: Clear to auscultation bilaterally. HEART: S1, S2. ABDOMEN: Soft, no tenderness. Bowel sounds soft in all four quadrants. EXTREMITIES: Lower extremities positive for erythema and the right upper thigh seems to be 90% resolved from prior examination. Right lower abdomen and previous area of erythema resolved completely. No lymph nodes are appreciated. IMAGING AND LABS: Blood cultures are still pending, negative. ASSESSMENT AND PLAN: 1. Right upper thigh cellulitis with the right abdomen cellulitis that seems to be improving after switching antibiotics. CT scan discussed with the patient and aware with this lymphadenopathy. Dr. Montoya from general surgery evaluated the patient and said that it is going to be very difficult to obtain sample of those lymph nodes as there is no palpable lymph node at this point and on the CT is showing the maximum dimension is 1 cm. Patient and agreed to the above plan and we are still waiting on hematology/oncology consultation and will follow up with their recommendation. 2. Abdominal pain, seems to be improving. 3. Anxiety, improved. 4. Chronic back pain under fair control. 5. Deep venous thrombosis prophylaxis on Lovenox.
[2016-11-25] MEDS: CEFTAROLINE FOSAMIL 600 MG in SODIUM CHLORIDE 0.9% 250 ML IVPB SCH ×2 (08:32→20:42)
--- NOTE | 2016-11-25 11:08 | PN ---
DATE OF SERVICE: 11/24/2016 REASON FOR FOLLOW-UP: Right groin and abdominal wall cellulitis. INTERVAL HISTORY: The patient is afebrile. Overall, swelling and redness to the thigh and abdominal area has improved. The patient denies having any chest pain or shortness of breath or cough. No diarrhea. On examination, blood pressure 135/67 with a pulse of 87, temperature 97.6. She is 96% on room air. General description is a middle-age female lying in bed in no distress. RESPIRATORY SYSTEM: Unlabored breathing. Clear to auscultation anteriorly. HEART: S1, S2 regular rate and rhythm. Abdomen soft, no tenderness. The thigh and lower abdominal area with redness has improved. No induration. LABS: Hemoglobin is 12. White count 6.4 with a BUN of 13, creatinine 0.74. Blood culture has been negative. The patient did have CT of the abdomen and pelvis, which did show subcutaneous edema over the lower anterior abdomen. Normal appendix mild abnormal periaortic lymph nodes and multiple bilateral inguinal lymph nodes with question of lymphoma. DIAGNOSTIC IMPRESSION AND PLAN: Patient admitted to the hospital with right thigh and lower abdominal wall cellulitis. The patient did have a history of Cat scratch with a question of possible cat scratch disease, surgery has been consulted for possible lymph node biopsy. We will start the patient on Bactrim DS to get coverage for bartonella as the patient has been on Augmentin/zithromax as an outpatient. Continue supportive care. MTDD
[2016-11-25] MEDS: SODIUM CHLORIDE 0.9% 1,000 ML IV SCH (18:52)
[2016-11-25] MEDS: MELATONIN 3 MG TABLET PO SCH (20:42)
[2016-11-25] MEDS: SULFAMETHOX-TMP 800-160MG 1 EACH TAB PO SCH (20:42)
--- NOTE | 2016-11-25 22:37 | P.PN ---
Subjective Principal diagnosis: Cellulitis right leg Very pleasant 61-year-old woman who normally follows with Dr. Hernandez presents to the emergency center with ongoing difficulties to her right thigh. She relates that several weeks ago her cat was on her lab and did cause a scratch to her thigh. She she with a course of outpatient antibiotic therapy with Augmentin from her primary care physician. However since that time she's been having ongoing difficulties with significant swelling erythema and pain to the right thigh. A presentation of the hospital after courses of antibiotic therapy included Augmentin, Keflex and his azithromycin she developed worsening pain and swelling to the upper right thigh. It goes across her pelvis across the mons pubis and onto the left groin area. She has been living in pain and discomfort in this region. It is no better today than it was yesterday. She feels that she has a low-grade fever and chill but is not having mateusz rigors. she is very anxious to have this improved because [place] the [place] in the next few weeks. Due to the somewhat atypical presentation has agreed to the computed tomography scan. This has come back and is quite abnormal. With several lymph nodes that are 3 cm or so in size. Objective - Vital Signs Vital signs: Vital Signs Temp 97.3 F L 11/25/16 15:00 Pulse 80 11/25/16 15:00 Resp 16 11/25/16 15:00 BP 114/58 11/25/16 15:00 Pulse Ox 97 11/25/16 15:00 Intake & Output 11/25/16 11/25/16 11/26/16 06:59 18:59 06:59 Other: Voiding Method Toilet # Voids 2 4 - Exam Pleasant 61-year-old woman in no acute distress HEENT: Anicteric conjunctiva are pink and moist nasal mucosa grossly intact without significant lesions, there is no thrush. Neck: The neck is supple without significant lymphadenopathy or thyromegaly. Lungs: Good bilateral air entry without significant crackles or wheezing. There is no significant bronchial sounds. There is no egophony or dullness. Heart: Regular rate and rhythm with an audible S1-S2, no S3 no S4. There is no significant murmur click or rub, PMI was nondisplaced. Abdomen: Positive bowel sounds soft and nontender without palpable masses or organomegaly. There was no guarding or rebound. Extremities: The upper extremities are intact. The IV site is intact. The left leg is generally normal except right at the thigh fold. Or there is a mild amount of erythema with significant lymphadenopathy. Abdominal wall across the mons pubis and onto the right upper thigh. There is some significant erythema. There is tenderness in tissue swelling. It is very tender to this region. Upper thigh and the right is quite tender. There is no palpable abscess. The dense erythema over the right thigh Mons pubis and left groin area has markedly improved. Is now just scant minimal light pink discoloration. It is noted is still very tender. She has has some discomfort of the right knee where she apparently has some internal derangement and needs surgery in the future. Neuro: Awake alert oriented to person place and time. There are no acute new gross focal sensory motor deficits. - Labs CBC & Chem 7: 11/23/16 08:54 11/23/16 08:54 Labs: Laboratory Results WBC 6.4 k/uL (3.8-10.6) 11/23/16 08:54 RBC 3.92 m/uL (3.80-5.40) 11/23/16 08:54 Hgb 12.0 gm/dL (11.4-16.0) 11/23/16 08:54 Hct 35.5 % (34.0-46.0) 11/23/16 08:54 MCV 90.7 fL (80.0-100.0) 11/23/16 08:54 MCH 30.6 pg (25.0-35.0) 11/23/16 08:54 MCHC 33.7 g/dL (31.0-37.0) 11/23/16 08:54 RDW 12.7 % (11.5-15.5) 11/23/16 08:54 Plt Count 215 k/uL (150-450) 11/23/16 08:54 Neutrophils % 65 % 11/23/16 08:54 Lymphocytes % 23 % 11/23/16 08:54 Monocytes % 8 % 11/23/16 08:54 Eosinophils % 1 % 11/23/16 08:54 Basophils % 0 % 11/23/16 08:54 Neutrophils # 4.1 k/uL (1.3-7.7) 11/23/16 08:54 Lymphocytes # 1.5 k/uL (1.0-4.8) 11/23/16 08:54 Monocytes # 0.5 k/uL (0-1.0) 11/23/16 08:54 Eosinophils # 0.1 k/uL (0-0.7) 11/23/16 08:54 Basophils # 0.0 k/uL (0-0.2) 11/23/16 08:54 ESR 8 mm/hr (0-20) 11/23/16 08:54 Sodium 143 mmol/L (137-145) 11/23/16 08:54 Potassium 3.9 mmol/L (3.5-5.1) 11/23/16 08:54 Chloride 107 mmol/L (98-107) 11/23/16 08:54 Carbon Dioxide 25 mmol/L (22-30) 11/23/16 08:54 Anion Gap 11 mmol/L 11/23/16 08:54 BUN 13 mg/dL (7-17) 11/23/16 08:54 Creatinine 0.74 mg/dL (0.52-1.04) 11/23/16 08:54 Est GFR (MDRD) Af Amer >60 (>60 ml/min/1.73 sqM) 11/23/16 08:54 Est GFR (MDRD) Non-Af >60 (>60 ml/min/1.73 sqM) 11/23/16 08:54 Glucose 87 mg/dL (74-99) 11/23/16 08:54 Calcium 9.1 mg/dL (8.4-10.2) 11/23/16 08:54 Total Bilirubin 0.5 mg/dL (0.2-1.3) 11/23/16 08:54 AST 27 U/L (14-36) 11/23/16 08:54 ALT 33 U/L (9-52) 11/23/16 08:54 Alkaline Phosphatase 53 U/L (38-126) 11/23/16 08:54 Total Protein 6.5 g/dL (6.3-8.2) 11/23/16 08:54 Albumin 3.8 g/dL (3.5-5.0) 11/23/16 08:54 Microbiology 11/20/16 17:00 Blood Blood Culture - Preliminary No Growth after [address] as noted shows evidence of the enlarged lymph nodes in the inguinal area up to 3 cm. There is also evidence of abnormal lymph nodes within the periureteric and retrocrural area. Assessment and Plan (1) Cellulitis of right thigh Narrative/Plan: Very pleasant 61-year-old woman who has a pet cat. In general she's had no difficulty with the animal. Apparently it was on her lab and cause a small scratch to upper thigh was treated with antibiotic therapy. Despite that she's been having ongoing difficulties with some pain and swelling to the right side. No despite several courses of antibiotic therapy is now much worse. His erythema on the upper thigh. It is warm and hot. It extends across the upper aspect of the thigh across the mons pubis into the left groin area. The entire area is warm to touch, with erythema in distinct tenderness. She had outpatient Doppler study without evidence of deep venous thrombosis which she was concerned about because she has a history of a prior DVT. At this time we'll alter antibiotic therapy to go for more resistant pathogens to Ceftaroline. Bartonella titers are requested. Local pain control should be continued. She does not like pain medicines very well. The patient is having no difficulties with the Ceftaroline therapy. And as noted the pattern is somewhat unusual for routine cellulitis. She's now had a computed tomography scan it's been performed. She is evidence of significant abnormal lymph nodes within the region that do cross the midline. There is also some lymphadenopathy in the deep pelvis. Because of this concern as to infectious versus noninfectious etiology such as lymphoma is considered. She does have a history of a Scratch. Bartonella infection is still of some consideration. This however is certainly a very atypical presentation. Other disease states her considered including lymphoma or other disease such as sarcoidosis .And constantly biopsy of a lymph node is important at this point in time. A full lymph node needs to be removed for complete analysis of its morphology. And by the computed tomography scan there are many good candidates available. Dr. Rene has been consulted. the leukopenia that was noted yesterday has resolved. After lymph node removal if she continues to remain well can be discharged home on oral trimethoprim sulfamethoxazole to complete her course of therapy Status: Acute (2) Fever Status: Acute (3) Bilateral groin pain Status: Acute (4) Leukopenia Status: Acute
[2016-11-26 01:01] VITALS: RESP 18
[2016-11-26 06:04] VITALS: BP 119/69; PULSE 77; TEMP 97
--- NOTE | 2016-11-26 07:55 | PN ---
INTERVAL HISTORY: The patient continues to be hemodynamically stable. No major events reported by nursing staff. Patient currently is hemodynamically stable. Denying chest pain, shortness breath, nausea, vomiting, abdominal pain, dizziness, lightheadedness or blurry vision. PHYSICAL EXAMINATION: Vitals are stable. LUNGS: C tonsillectomy and adenoidectomy bilaterally. HEART: S1, S2. ABDOMEN: Soft, no tenderness. Bowel sounds in all four quadrants. LOWER EXTREMITIES: No edema. SKIN: Positive for resolution of her skin erythema and abdominal wall skin erythema. NEURO: No focal deficit. LYMPH: Lymphatic system without adenopathy. ASSESSMENT AND PLAN: 1. Lymphadenopathy with cellulitis and the possibility of cat scratch disease. Patient will be continued on the current antibiotic. I discussed the case with Dr. Howe at the bedside and with the patient and her , who all agreed for the need for lymph node biopsy in the morning, which will be done by General Surgery. Patient will be kept n.p.o. For that reason will continue the current antibiotic regimen. Consider discharging the patient tomorrow on oral antibiotics for 2 weeks given the improvement and responsiveness to the antibiotics regimen. Patient also advised to repeat the CT scan in two weeks and showed resolution of her lymphadenopathy and she is agreeable to follow up with her primary care physician and Infectious Disease regarding lymph node biopsy pathology. 2. Anxiety, seems to be improved. 3. Received counseling regarding weight loss. 4. Discharge planning based on clinical progress.
[2016-11-26] MEDS: CEFTAROLINE FOSAMIL 600 MG in SODIUM CHLORIDE 0.9% 250 ML IVPB SCH (07:59)
[2016-11-26] MEDS: SULFAMETHOX-TMP 800-160MG 1 EACH TAB PO SCH (08:04)
[2016-11-26] MEDS: ALPRAZolam 0.5 MG TAB PO SCH (08:04)
[2016-11-26] MEDS: HYDROcodone/APAP 10-325MG 1 EACH TAB PO PRN (11:22)
--- NOTE | 2016-11-26 11:54 | P.PN ---
Subjective A 61-year-old female being seen currently resting in bed. The plan of care was discussed with the patient. Patient will be set up for an outpatient lymph node biopsy to be done this coming Thursday on the left side per Dr. Montoya patient had a CAT scan of the abdomen pelvis it did show evidence of significant abnormal lymph nodes within the region. This also some lymphadenopathy. Because of the concern of infection versus noninfectious in etiology such as lymphoma a recommendation has been to proceed with a biopsy of the lymph nodes in the left side in the will area. This was discussed by surgical service with the patient at the bedside this morning questions were answered patient elects to proceed. patient's initial presentation to the emergency room with cellulitis involving the right thigh. Patient had been on outpatient antibiotic therapy reportedly had failed outpatient treatment the swelling involving the right upper thigh continue to persist in which the patient seek further medical treatment Patient currently is being followed by infectious disease For antibiotic recommendations Objective - Vital Signs Vital signs: Vital Signs Temp 97.0 F L 11/26/16 06:03 Pulse 77 11/26/16 06:03 Resp 18 11/26/16 06:03 BP 119/69 11/26/16 06:03 Pulse Ox 98 11/26/16 06:03 Intake & Output 11/25/16 11/26/16 11/26/16 18:59 06:59 18:59 Intake Total 450 Balance 450 Intake: Oral 450 Other: # Voids 4 2 - Exam Physical exam A 61-year-old female resting in bed pleasant oriented 3 Lungs essentially clear adequate air movement on room air no cough Heart S1-S2 audible and regular Abdomen soft nontender no frequent stooling no nausea vomiting Extremities no evidence of edema to the upper or lower extremities Skin there is no increased redness from the reference markings. Medial right upper thigh right groin and suprapubic area red tender to the touch. A significant improvement in the redness since admission The left inguinal lymph node palpable approximately 2 cm hard fixed nodule noted - Labs CBC & Chem 7: 11/23/16 08:54 11/23/16 08:54 Assessment and Plan Plan: Impression Present on admission cellulitis right upper extremity failed outpatient treatment Per CAT scan abdomen pelvis suspected Lymphadenopathy, abdominal Acute Lymphadenopathy of other site History of osteoarthritis right knee History of lumbar disc disease Plan Recommendations antibiotics per infectious disease Patient has elected to proceed with a biopsy left inguinal lymph node for workup lymphoma this will be done in an outpatient setting this Thursday on the november per Dr. Montoya The above dictated assessment and findings were discussed with Dr. Eneida Montoya Impression and the plan of care have been dictated as directed. Alda Albarran nurse practitioner acting as a scribe for Dr. Garcia
[2016-11-27 00:53] LABS: Bartonella henselae Ab, IgG <1:64; Bartonella henselae Ab, IgM < 1:16
--- NOTE | 2016-11-27 13:24 | DS ---
DATE OF ADMISSION: 11/20/2016 DATE OF DISCHARGE: 11/26/2016 INTERVAL HISTORY: The patient continued to be hemodynamically stable. No major events reported by nursing staff. PHYSICAL EXAMINATION: VITAL SIGNS: Reviewed and stable. LUNGS: Clear to auscultation bilaterally. HEART: Normal S1, S2. ABDOMEN: Soft. Bowel sounds in all 4 quadrants. Mild tenderness on the lower abdomen SKIN: Complete resolution of her skin erythema on the lower abdomen and upper thigh on the right side. IMAGING AND LABS: Reviewed. ( ). DISCHARGE DIAGNOSIS: 1. Cellulitis of the abdominal wall and right upper extremity complicated with lymphadenopathy and tenderness. Patient responded to current antibiotic regimen. I had a long discussion with patient and patient's after discussion with Dr. Howe and General Surgery and plan is to discharge patient today. The patient to return on Thursday for lymph node excisional biopsy by Surgery which is scheduled for Thursday. Patient was agreeable. We will continue Bactrim double strength p.o. twice daily for [address] Howe. Patient and multiple concerns and questions. All answered and addressed at the bedside prior to discharge. 2. Lymphadenopathy. CT scan revealed lymphadenopathy in the midline and across the midline from the infection site. The patient understands that this may represent an early malignancy and repeat CAT scan is indicated prior to confirming resolution and patient has to follow up also with Hematology/Oncology outpatient and with her primary care physician in one week. 3. Anxiety. The patient was provided Xanax on discharge and asked to follow up with the primary care physician in that regard. DISCHARGE PROCESS: 35 minutes.
== END 2016-11-26 12:29 | disposition home or self-care (01) ==
LOC: EC 13:44 → INTOOBSV 18:05 → 4MS4W 18:05
PROVIDERS: ADMIT Family Medicine; ATTEND Family Medicine
DX: L03.115 Cellulitis of right lower limb (principal); L03.311 Cellulitis of abdominal wall; R59.1 Generalized enlarged lymph nodes; F41.9 Anxiety disorder, unspecified; D72.819 Decreased white blood cell count, unspecified; R10.9 Unspecified abdominal pain; M51.36 Other intervertebral disc degeneration, lumbar region; M50.30 Other cervical disc degeneration, unspecified cervical region; K57.90 Diverticulosis of intestine, part unspecified, without perforation or abscess without bleeding; E66.9 Obesity, unspecified; M26.609 Unspecified temporomandibular joint disorder, unspecified side; M17.11 Unilateral primary osteoarthritis, right knee; M54.9 Dorsalgia, unspecified; G89.29 Other chronic pain; K21.9 Gastro-esophageal reflux disease without esophagitis; M85.80 Other specified disorders of bone density and structure, unspecified site; R21 Rash and other nonspecific skin eruption; Z98.51 Tubal ligation status; Z98.811 Dental restoration status; Z68.31 Body mass index [BMI] 31.0-31.9, adult; Z87.828 Personal history of other (healed) physical injury and trauma; Z86.010 Personal history of colon polyps; Z87.11 Personal history of peptic ulcer disease; Z86.718 Personal history of other venous thrombosis and embolism; Z87.891 Personal history of nicotine dependence; Z86.72 Personal history of thrombophlebitis; Z79.2 Long term (current) use of antibiotics; Z79.891 Long term (current) use of opiate analgesic; Z79.899 Other long term (current) drug therapy; Z88.8 Allergy status to other drugs, medicaments and biological substances; Z82.49 Family history of ischemic heart disease and other diseases of the circulatory system; Z80.0 Family history of malignant neoplasm of digestive organs; Z80.8 Family history of malignant neoplasm of other organs or systems; Z80.3 Family history of malignant neoplasm of breast; Z80.42 Family history of malignant neoplasm of prostate; Z82.0 Family history of epilepsy and other diseases of the nervous system; Z83.1 Family history of other infectious and parasitic diseases; W55.03XA Scratched by cat, initial encounter
CPT/HCPCS: 96365 ×2; 99284 ×2; 36415; 80053 ×3; 85652; 86611 ×2; 85025 ×3; 87040; 74177; G0378 ×7; J2930; Q9967; J0295 ×3; J0712 ×5; 96366; 96375; 96376

== ENCOUNTER 2016-11-28 12:26 | Day surgery (SDC) | payer BC ==
[2016-11-27 10:20] VITALS: BMI 28.3
[~2016-11-28 12:26] MED LIST: HYDROmorphone 1 MG/ML 1 ML SYRINGE IVP PRN; LACTATED RINGERS 1,000 ML IV SCH; MIDAZOLAM 2 MG/2 ML VIAL IV PRN; ONDANSETRON 4 MG/2 ML VIAL IVP ONE; Pre Op ABX Message 1 EACH MISC MISCELLANE ONE; SCOPOLAMINE 1.5MG/72HR PATCH TRANSDERM ONE
[2016-11-28 12:41] VITALS: BP 121/68; PULSE 75; RESP 16; TEMP 97.9
[2016-11-28] MEDS ORDERED: LIDOCAINE 1% 20 ML VIAL (10MG/ML) FOR IV START INTRADERMA ONE (12:47)
[2016-11-28] MEDS: HEPARIN SODIUM,PORCINE 5,000 UNIT/ML 1 ML VIAL SQ ONE ×2 (12:48→13:39)
== END 2016-11-28 15:02 | disposition home or self-care (01) ==
LOC: OR 12:26
PROVIDERS: ATTEND Surgery
DX: R59.1 Generalized enlarged lymph nodes (principal)

== ENCOUNTER 2016-12-02 10:20 | Day surgery (SDC) | payer BC ==
[2016-12-01 12:13] VITALS: BMI 28.3
[~2016-12-02 10:20] MED LIST changes: +ALPRAZolam 0.25 MG TAB PO PRN; +DEXAMETHASONE SOD PHOSPHATE 10 MG/ML 1 ML VIAL IV ONE; +HEPARIN SODIUM,PORCINE 5,000 UNIT/ML 1 ML VIAL SQ ONE; -SCOPOLAMINE 1.5MG/72HR PATCH TRANSDERM ONE
[2016-12-02] MEDS ORDERED: LIDOCAINE 1% 20 ML VIAL (10MG/ML) FOR IV START INTRADERMA ONE (11:24)
[2016-12-02] MEDS ORDERED: HEPARIN SODIUM,PORCINE 5,000 UNIT/ML 1 ML VIAL SQ ONE (12:13)
[2016-12-02] MEDS ORDERED: PROPOFOL 10 MG/ML 20 ML VIAL IV ONE (12:42)
[2016-12-02] MEDS ORDERED: LIDOCAINE 1% INJ 10MG/ML (20 ML MDV) ONE (12:42)
[2016-12-02] MEDS ORDERED: fentaNYL (PF) 50 MCG/ML 2 ML AMP ONE (12:42)
[2016-12-02] MEDS ORDERED: SUCCINYLCHOLINE CHLORIDE VIAL 200 MG/10 ML VIAL IV ONE (12:42)
[2016-12-02] MEDS ORDERED: MIDAZOLAM 2 MG/2 ML VIAL ONE (12:42)
--- NOTE | 2016-12-02 13:00 | US ---
Ultrasound-guided needle localization left femoral lymphadenopathy CLINICAL HISTORY: Left groin adenopathy requested by surgery for needle localization wire placed prio r to surgical excision. FINDINGS: The procedure was explained to the patient. The risks, complications, benefits and alternatives were discussed and any questions were answered. Informed consent was obtained. Patient was placed supin e on the ultrasound table and prepped and draped in the usual sterile fashion. Utilizing a 5 cm Kopa n's needle, the needle was placed within the lymph node requested and the wire was subsequently place d. Patient was stable throughout the procedure. All elements of maximal barrier technique were utilized. IMPRESSION: 1. Successful ultrasound guided left femoral lymph node needle localization prior to intraoperative procedure.
[2016-12-02] MEDS ORDERED: LIDOCAINE 1% INJ 10MG/ML (20 ML MDV) SQ ONE ×2 (13:11→13:24)
--- NOTE | 2016-12-02 13:30 | P.OP ---
Date of Procedure: 12/02/16 Preoperative Diagnosis: left groin adenopathy Postoperative Diagnosis: same Procedure(s) Performed: excisional biopsy left groin node Anesthesia: ISABELA Surgeon: Steph Hou Estimated Blood Loss (ml): 3 IV fluids (ml): 300 Pathology: other (left groin lymph node) Condition: stable Disposition: PACU Indications for Procedure: Enlarged groin adenopathy rule out lymphoma Operative Findings: enlarged lymph node in the left groin Description of Procedure: patient was taken to the operating room and the area of the left breast was prepped and draped in a sterile fashion. The patient had previously undergone localization of the lymph node of concern in the left groin. Incision was made and carried down to the area of the hook of the. This was approximately 4 cm deep. at this level the palpable lymph node was demonstrated. The lymph node was approximately 2 cm in size by 1-1/2 cm. It was infiltrated and somewhat soft. A Harmonic Scalpel was utilized to excise the lymph node. After the lobe was excised. Pathology was called and this was sent fresh for flow cytometry into the lymphoma. Prior to sending it a small specimen was taken from the for cultures. Cultures were obtained as well aerobic and anaerobic bacteria. After assured that hemostasis was attained the deep tissues were closed using 3-0 Vicryl suture. This was followed by closure of the skin with 4 -0 Monocryl. Patient tolerated procedure in stable condition. All instrument and sponge counts were correct at the end of the case.
--- NOTE | 2016-12-02 13:33 | P.DS ---
Providers Attending physician: Steph Hou Primary care physician: Pratik Hernandez Plan - Discharge Summary New Discharge Prescriptions: HYDROcodone/APAP 5-325MG [[place] 5] 1 - 2 each PO Q4H PRN #20 tab PRN Reason: Pain Discharge Medication List ALPRAZolam [Xanax] 1 - 2 mg PO TID PRN 11/20/16 [History] HYDROcodone/APAP 10-325MG [[place] 10-325] 1 tab PO TID PRN 11/20/16 [History] Sulfamethox-Tmp 800-160Mg [Bactrim DS 800-160 mg] 1 each PO BID #14 tab [Rx] Acetaminophen Tab [Tylenol Tab] 650 mg PO Q4H 11/27/16 [History] HYDROcodone/APAP 5-325MG [[place] 5] 1 - 2 each PO Q4H PRN #20 tab 12/02/16 [Rx] Follow up Appointment(s)/Referral(s): Steph Hou MD [STAFF PHYSICIAN] - 3 Days Activity/Diet/Wound Care/Special Instructions: May shower after 48 hours Discharge Disposition: HOME SELF-CARE
[2016-12-02 13:37] VITALS: RESP 16; TEMP 97.4
[2016-12-02 15:00] VITALS: BP 118/64; PULSE 64
== END 2016-12-02 15:50 | disposition home or self-care (01) ==
LOC: OR 10:20
PROVIDERS: ATTEND Surgery
DX: C85.15 Unspecified B-cell lymphoma, lymph nodes of inguinal region and lower limb (principal); M51.26 Other intervertebral disc displacement, lumbar region; M19.90 Unspecified osteoarthritis, unspecified site; F41.9 Anxiety disorder, unspecified; Z79.2 Long term (current) use of antibiotics; Z79.891 Long term (current) use of opiate analgesic; Z79.899 Other long term (current) drug therapy; Z88.8 Allergy status to other drugs, medicaments and biological substances; Z87.891 Personal history of nicotine dependence
CPT/HCPCS: 38500; 88184; 88185; 88307; 87070; 87205; 87075; 76942; J2250; J0330; J1644; J1100; J2405; J2001; J3010; J2704

== ENCOUNTER → 2016-12-25 | Outpatient (CLI) | payer BC ==
--- NOTE | 2016-12-25 11:06 | CT ---
EXAMINATION TYPE: CT chest w con DATE OF EXAM: 12/25/2016 9:29 AM COMPARISON: CT abdomen pelvis 22 November 2016 HISTORY: Patient has no complaints at time of service. Patient has history of lymphoma that started in the groin. CT DLP: 165.2 mGycm Automated exposure control for dose reduction was used. CONTRAST: CT scan of the chest is performed with IV Contrast, patient injected with 100 mL of Omnipaque 300. FINDINGS: LUNGS: The lungs are grossly clear, there is no concerning parenchymal mass or nodule identified. T here is no pleural effusion or pneumothorax seen. The tracheobronchial tree is patent. MEDIASTINUM: There are no greater than 1 cm hilar or mediastinal lymph nodes. No pericardial effusi on is seen. Shotty nodes are present within the mediastinum. AORTA: No additional significant abnormality is seen. Bilateral axillary nodes are present, the largest on the left measures approximately 13 mm in short a xis, on the right 14 mm in short axis. OTHER: Small focus of pleural thickening present posterior laterally right upper chest, some minimal local inflammatory change is suspected. Axial image 32 shows a small subpleural nodular focus measur ing 7 8 mm posteriorly on the left of questionable clinical significance. Supraclavicular adenopathy is present, noted on the left measures approximately 12 mm in short axis at the thoracic inlet level. Small retrocrural nodes are present. Small retroperitoneal nodes, subpectoral nodes are present, sub pectoral node on the left shows a short axis of 15 mm. IMPRESSION: Findings compatible with patient's history of lymphoma as described.
== END | disposition home or self-care (01) ==
LOC: RADCTMAIN 08:58
PROVIDERS: ATTEND Internal Medicine Hematology & Oncology
DX: C85.90 Non-Hodgkin lymphoma, unspecified, unspecified site (principal)
CPT/HCPCS: 71260; Q9967

== ENCOUNTER → 2016-12-31 | Outpatient (CLI) | payer BC ==
--- NOTE | 2016-12-31 22:01 | MR ---
EXAMINATION TYPE: MR knee RT wo/w con DATE OF EXAM: 12/31/2016 5:40 PM COMPARISON: NONE HISTORY: Right Knee pain with Swelling for approx. 6 months. Recently diagnosed with lymphoma 4 weeks ago. TECHNIQUE: Multiplanar, multisequence images of the knee is performed without and with IV contrast. Patient inje cted with 15 cc of MultiHance for exam. FINDINGS: Exam is slightly suboptimal as there is motion artifact present. MEDIAL MENISCUS: Anterior and posterior horns are intact without tear. LATERAL MENISCUS: Anterior and posterior horns are intact without tear. CRUCIATE LIGAMENTS: The anterior and posterior cruciate ligaments are intact and unremarkable. COLLATERAL LIGAMENTS: The medial collateral ligament and lateral collateral ligament complex are inta ct and unremarkable. EXTENSOR MECHANISM: Visualized quadriceps and patellar tendons are intact. EFFUSION: No significant suprapatellar joint effusion. POPLITEAL CYST: No popliteal/swann cyst. TRICOMPARTMENT SPACES: There is mild tricompartment joint space loss and spurring. CARTILAGE: There is some fissuring and cartilaginous loss along the posterior patellar pole. No full- thickness chondromalacia patella is present. No significant cartilaginous loss medial and lateral tib iofemoral compartments is seen. BONE MARROW SIGNAL: No focal abnormal marrow signal is appreciated. OTHER: No suspicious postcontrast enhancement is noted. IMPRESSION: No meniscal or ligamentous tear is seen. Mild degenerative changes are present as detaile d above.
== END | disposition home or self-care (01) ==
LOC: RADMRIMAIN 16:08
PROVIDERS: ATTEND Family Medicine
DX: M25.861 Other specified joint disorders, right knee (principal); M25.561 Pain in right knee
CPT/HCPCS: 73723; A9577

== ENCOUNTER → 2017-02-25 | Outpatient (CLI) | payer BC ==
--- NOTE | 2017-02-25 08:43 | XR ---
EXAMINATION TYPE: XR chest 2V DATE OF EXAM: 02/25/2017 7:36 AM HISTORY: R05 cough. REFERENCE: Previous study dated 11/25/2013. FINDINGS: A MediPort is in place via a right internal jugular approach. Its tip is in the superior ve na cava. I do not see evidence of pneumothorax. The lungs are clear. Pleural spaces are clear. Heart size is normal. IMPRESSION: 1. SATISFACTORY MEDIPORT PLACEMENT. 2. NO ACUTE INTRATHORACIC ABNORMALITY.
== END | disposition home or self-care (01) ==
LOC: RADXRMAIN 07:20
PROVIDERS: ATTEND Family Medicine
DX: R05 Cough (principal); Z95.828 Presence of other vascular implants and grafts
CPT/HCPCS: 71020

== ENCOUNTER 2017-03-09 10:47 | Emergency (ER) | payer BC ==
[2017-03-09] MEDS ORDERED: SODIUM CHLORIDE 0.9% 1,000 ML IV STA (11:26)
--- NOTE | 2017-03-09 11:29 | ED ---
General Adult HPI - General Chief complaint: Upper Respiratory Infection Stated complaint: Congestion Time Seen by Provider: 03/09/17 11:08 Source: patient, RN notes reviewed Mode of arrival: ambulatory Limitations: no limitations - History of Present Illness Initial comments: Patient is a pleasant 61-year-old female presenting to the emergency department from urgent care secondary to cough and upper respiratory symptoms. Symptoms have been present for a couple of weeks. Patient did see her primary care physician at that time. Patient has continued symptoms. Patient has chills and feels like she has a fever. Patient however did not have fever when she checked yesterday and today. No dyspnea. Cough is dry nonproductive. Patient has significant amount of nasal drainage and some congestion. Mild sore throat. No abdominal pain. 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 Last treatment was 2 weeks ago. White blood cell count was borderline at that time. - Related Data Home Medications Medication Instructions Recorded Confirmed ALPRAZolam [Xanax] 1 - 2 mg PO TID PRN 11/20/16 03/09/17 HYDROcodone/APAP 10-325MG [[place] 1 tab PO TID PRN 11/20/16 03/09/17 10-325] Fluticasone/Vilanterol [Breo 1 puff INHALATION RT-BID 03/09/17 03/09/17 Ellipta 200-25 Mcg INH] Magnesium 200 mg PO DAILY 03/09/17 03/09/17 guaiFENesin SYRUP 100MG/5ML 600 mg PO Q4H PRN 03/09/17 03/09/17 [Robitussin] oxyCODONE-APAP 5-325MG [Percocet 1 tab PO Q6HR PRN 03/09/17 03/09/17 5-325 mg] Previous Rx's Medication Instructions Recorded Levofloxacin [Levaquin] 500 mg PO DAILY #10 tab 03/09/17 guaiFENesin-Coden 100-10MG/5ML 10 ml PO Q6HR PRN #200 ml 03/09/17 [Robitussin AC] Allergies Allergy/AdvReac Type Severity Reaction Status Date / Time acyclovir [From Zovirax] Allergy Dyspnea Verified 03/09/17 11:46 cortisone Allergy Swelling Verified 03/09/17 11:46 WITH INJECTION Review of Systems ROS Statement: Those systems with pertinent positive or pertinent negative responses have been documented in the HPI. ROS Other: All systems not noted in ROS Statement are negative. Constitutional: Reports: chills Eyes: Denies: eye pain ENT: Reports: throat pain, congestion. Denies: ear pain Respiratory: Reports: cough. Denies: dyspnea Cardiovascular: Denies: chest pain Gastrointestinal: Denies: abdominal pain Genitourinary: Denies: dysuria Musculoskeletal: Denies: back pain Skin: Reports: lesions (Patient complains of fever blister on her lower lip) Neurological: Denies: headache Psychiatric: Denies: anxiety Past Medical History Past Medical History: Deep Vein Thrombosis (DVT), GERD/Reflux, Osteoarthritis ( OA) Additional Past Medical History / Comment(s): DIVERTICULAR DIEASE, PEPTIC ULCER , RT LEG DVT, History of Any Multi-Drug Resistant Organisms: None Reported Past Surgical History: Tubal Ligation Additional Past Surgical History / Comment(s): EGD, COLONOSCOPY, DENTAL IMPLANTS Past Anesthesia/Blood Transfusion Reactions: Previous Problems w/ Anesthesia Additional Past Anesthesia/Blood Transfusion Reaction / Comment(s): " PATIENT STATES WOKE UP DURING SX" WITH MAC AND VEIN STRIPPING Past Psychological History: Anxiety Smoking Status: Former smoker Past Alcohol Use History: None Reported Additional Past Alcohol Use History / Comment(s): STARTED SMOKING AT AGE 13 QUIT AT AGE 21 SMOKED 1/2-3/4 PPD Past Drug Use History: None Reported - Past Family History Mother Family Medical History: Cancer, Hypertension Additional Family Medical History / Comment(s): BREAST, COLON,SKIN CANCER Father Family Medical History: Cancer Additional Family Medical History / Comment(s): PROSTATE CANCER, POLIO, HEART DISEASE Sister(s) Family Medical History: Neurologic Disorder General Exam Limitations: no limitations General appearance: alert, in no apparent distress Head exam: Present: atraumatic Eye exam: Present: normal appearance, PERRL ENT exam: Present: other (Mild tenderness over the frontal ethmoid andSinuses. Mild pharyngeal cobblestoning.) Neck exam: Present: normal inspection Respiratory exam: Present: normal lung sounds bilaterally Cardiovascular Exam: Present: regular rate, normal rhythm GI/Abdominal exam: Present: soft. Absent: tenderness Extremities exam: Present: normal inspection. Absent: calf tenderness Neurological exam: Present: alert Psychiatric exam: Present: normal affect, normal mood Skin exam: Present: other (Small vesicular lesion lower lip.) Course Vital Signs 03/09/17 03/09/17 11:00 13:29 Temperature 98.3 F 98.2 F Pulse Rate 95 Respiratory 16 Rate Blood Pressure 158/84 O2 Sat by Pulse 99 Oximetry - Reevaluation(s) Reevaluation #1: 03/09/17 14:13 Patient reevaluated and resting comfortably in bed. Patient updated on results. Port site reassessed and does look well. There is some mild to moderate tenderness. Repeat x-ray shows no acute process involving the port. Patient is advised for further evaluation if she has increased pain or swelling or redness or fever. Medical Decision Making - Medical Decision Making Patient and family were updated on plan following discussion with Dr. Elder. He does recommend Levaquin 10 days and discharged. - Lab Data Result diagrams: 03/09/17 13:15 03/09/17 13:15 Lab Results 03/09/17 03/09/17 03/09/17 Range/Units 11:41 11:41 11:43 WBC (3.8-10.6) k/uL RBC (3.80-5.40) m/uL Hgb (11.4-16.0) gm/dL Hct (34.0-46.0) % MCV (80.0-100.0) fL MCH (25.0-35.0) pg MCHC (31.0-37.0) g/dL RDW (11.5-15.5) % Plt Count (150-450) k/uL Neutrophils % (Manual) % Lymphocytes % (Manual) % Monocytes % (Manual) % Eosinophils % (Manual) % Neutrophils # (Manual) (1.3-7.7) k/uL Lymphocytes # (Manual) (1.0-4.8) k/uL Monocytes # (Manual) (0-1.0) k/uL Eosinophils # (Manual) (0-0.7) k/uL Nucleated RBCs (0-0) /100 WBC Manual Slide Review Sodium (137-145) mmol/L Potassium (3.5-5.1) mmol/L Chloride (98-107) mmol/L Carbon Dioxide (22-30) mmol/L Anion Gap mmol/L BUN (7-17) mg/dL Creatinine (0.52-1.04) mg/dL Est GFR (MDRD) Af Amer (>60 ml/min/1.73 sqM) Est GFR (MDRD) Non-Af (>60 ml/min/1.73 sqM) Glucose (74-99) mg/dL Calcium (8.4-10.2) mg/dL Total Bilirubin (0.2-1.3) mg/dL AST (14-36) U/L ALT (9-52) U/L Alkaline Phosphatase (38-126) U/L Total Protein (6.3-8.2) g/dL Albumin (3.5-5.0) g/dL Urine Color Light Yellow Urine Appearance Clear (Clear) Urine pH 7.5 (5.0-8.0) Ur Specific [place] 1.006 (1.001-1.035) Urine Protein Negative (Negative) Urine Glucose (UA) Negative (Negative) Urine Ketones Negative (Negative) Urine Blood Negative (Negative) Urine Nitrite Negative (Negative) Urine Bilirubin Negative (Negative) Urine Urobilinogen <2.0 (<2.0) mg/dL Ur Leukocyte Esterase Negative (Negative) Influenza Type A RNA Not Detected (Not Detectd) Influenza Type B (PCR) Not Detected (Not Detectd) Group A Strep Rapid Negative (Negative) 03/09/17 03/09/17 Range/Units 13:15 13:15 WBC 4.4 (3.8-10.6) k/uL RBC 4.17 (3.80-5.40) m/uL Hgb 13.2 (11.4-16.0) gm/dL Hct 37.6 (34.0-46.0) % MCV 90.2 (80.0-100.0) fL MCH 31.7 (25.0-35.0) pg MCHC 35.2 (31.0-37.0) g/dL RDW 13.4 (11.5-15.5) % Plt Count 243 (150-450) k/uL Neutrophils % (Manual) 80.0 % Lymphocytes % (Manual) 7.0 % Monocytes % (Manual) 10.0 % Eosinophils % (Manual) 3.0 % Neutrophils # (Manual) 3.5 (1.3-7.7) k/uL Lymphocytes # (Manual) 0.3 L (1.0-4.8) k/uL Monocytes # (Manual) 0.4 (0-1.0) k/uL Eosinophils # (Manual) 0.1 (0-0.7) k/uL Nucleated RBCs 0 (0-0) /100 WBC Manual Slide Review Performed Sodium 138 (137-145) mmol/L Potassium 4.0 (3.5-5.1) mmol/L Chloride 104 (98-107) mmol/L Carbon Dioxide 22 (22-30) mmol/L Anion Gap 12 mmol/L BUN 7 (7-17) mg/dL Creatinine 0.50 L (0.52-1.04) mg/dL Est GFR (MDRD) Af Amer >60 (>60 ml/min/1.73 sqM) Est GFR (MDRD) Non-Af >60 (>60 ml/min/1.73 sqM) Glucose 96 (74-99) mg/dL Calcium 9.9 (8.4-10.2) mg/dL Total Bilirubin 0.4 (0.2-1.3) mg/dL AST 31 (14-36) U/L ALT 38 (9-52) U/L Alkaline Phosphatase 77 (38-126) U/L Total Protein 7.6 (6.3-8.2) g/dL Albumin 4.4 (3.5-5.0) g/dL Urine Color Urine Appearance (Clear) Urine pH (5.0-8.0) Ur Specific [place] (1.001-1.035) Urine Protein (Negative) Urine Glucose (UA) (Negative) Urine Ketones (Negative) Urine Blood (Negative) Urine Nitrite (Negative) Urine Bilirubin (Negative) Urine Urobilinogen (<2.0) mg/dL Ur Leukocyte Esterase (Negative) Influenza Type A RNA (Not Detectd) Influenza Type B (PCR) (Not Detectd) Group A Strep Rapid (Negative) - Radiology Data Radiology results: image reviewed (Chest x-ray shows no acute process. Repeat chest x-ray shows possible early infiltrate right infrahilar region.) Disposition Clinical Impression: Chest congestion Disposition: HOME SELF-CARE Condition: Stable Instructions: Bacterial Pneumonia (ED) Additional Instructions: Please follow-up with oncology and primary care physician in the next couple of days for recheck. Return for difficulty breathing, fevers, chest pain, worsening symptoms or other concerns. Prescriptions: Levofloxacin [Levaquin] 500 mg PO DAILY #10 tab guaiFENesin-Coden 100-10MG/5ML [Robitussin AC] 10 ml PO Q6HR PRN #200 ml PRN Reason: Cough Referrals: Pratik Hernandez DO [Primary Care Provider] - 1-2 days
[2017-03-09] MEDS ORDERED: LIDOCAINE-PRILOCAINE 2.5-2.5% CREAM 5 GM TUBE TOPICAL STA (11:38)
[2017-03-09 11:53] LABS: Appearance,Urine Clear (Clear); Bilirubin,Urine Negative (Negative); Glucose,Urine (UA) Negative (Negative); Ketones,Urine Negative (Negative); Leukocyte Esterase,Urine Negative (Negative); Nitrite,Urine Negative (Negative); PH, Urine 7.5 (5.0-8.0); Protein,Urine Negative (Negative); Specific Gravity,Urine 1.006 (1.001-1.035); UA Billing (MACRO vs. MICRO) CHEM; Urobilinogen,Urine <2.0 mg/dL (<2.0)
--- NOTE | 2017-03-09 12:17 | XR ---
EXAMINATION TYPE: XR chest 2V DATE OF EXAM: 03/09/2017 12:13 PM COMPARISON: 02/25/2017 HISTORY: 61-year-old female with fever TECHNIQUE: PA and lateral views FINDINGS: The cardiomediastinal silhouette, aorta, and pulmonary vasculature are within normal limits. Some str autumn atelectasis in the right lower lung. Otherwise, lungs and pleural spaces are clear. Right anteri or chest wall injection port with catheter tip at the lower SVC. IMPRESSION: No acute cardiopulmonary process.
[2017-03-09] MEDS ORDERED: ALPRAZolam 0.25 MG TAB PO STA (13:19)
[2017-03-09 13:39] LABS: ALT 38 U/L (9-52); AST 31 U/L (14-36); Alkaline Phosphatase 77 U/L (38-126); Anion Gap 12 mmol/L; Blood Urea Nitrogen 7 mg/dL (7-17); Calcium 9.9 mg/dL (8.4-10.2); Carbon Dioxide 22 mmol/L (22-30); Chloride 104 mmol/L (98-107); Glucose 96 mg/dL (74-99); Non-African American GFR(MDRD) >60 (>60 ml/min/1.73 sqM); Sodium 138 mmol/L (137-145); Total Bilirubin 0.4 mg/dL (0.2-1.3); Total Protein 7.6 g/dL (6.3-8.2)
[2017-03-09 13:41] LABS: Aty Lym Flag Slight; CH 32.1; CHCM 35.7; HCT 37.6 % (34.0-46.0); HDW 2.46; HGB 13.2 gm/dL (11.4-16.0); MCH 31.7 pg (25.0-35.0); MCHC 35.2 g/dL (31.0-37.0); MCV 90.2 fL (80.0-100.0); Mean Platelet Volume 6.9; RBC 4.17 m/uL (3.80-5.40); RDW 13.4 % (11.5-15.5); WBC 4.4 k/uL (3.8-10.6); WBC (Perox) 4.75
--- NOTE | 2017-03-09 14:03 | XR ---
EXAMINATION TYPE: XR chest 2V DATE OF EXAM: 03/09/2017 1:46 PM COMPARISON: Earlier today HISTORY: 61-year-old female pain near port site TECHNIQUE: PA and lateral views FINDINGS: Right anterior chest wall injection port catheter tip at the lower SVC. Heart is normal size. Aorta a nd pulmonary vasculature within normal limits. Slight increased patchy right infrahilar opacity. No p leural effusion. IMPRESSION: 1. No apparent change in the patient's right anterior chest wall injection port. 2. Some increasing patchy right infrahilar atelectasis or developing infiltrate.
[2017-03-09 14:05] LABS: Add Differential Manual Differential
[2017-03-09 14:09] LABS: Manual Review Performed; Nucleated Red Blood Cells 0 /100 WBC (0-0); Total Cells Counted 100
[2017-03-09 15:25] VITALS: BP 147/82; PULSE 94; RESP 17; TEMP 983
== END 2017-03-09 15:23 | disposition home or self-care (01) ==
LOC: EC 10:47
DX: R09.89 Other specified symptoms and signs involving the circulatory and respiratory systems (principal); K13.0 Diseases of lips; J34.89 Other specified disorders of nose and nasal sinuses; C85.10 Unspecified B-cell lymphoma, unspecified site; J02.9 Acute pharyngitis, unspecified; R05 Cough; R50.9 Fever, unspecified; Z87.891 Personal history of nicotine dependence; Z79.899 Other long term (current) drug therapy; Z88.8 Allergy status to other drugs, medicaments and biological substances
CPT/HCPCS: 36415; 71020; 80053; 81003; 85025; 87040; 87081; 87086; 87430; 87502; 96360; 96361; 99283

== ENCOUNTER → 2017-03-17 | Outpatient (CLI) | payer BC ==
--- NOTE | 2017-03-17 15:00 | XR ---
EXAMINATION TYPE: XR chest 2V DATE OF EXAM: 03/17/2017 2:54 PM COMPARISON: 03/09/2017 TECHNIQUE: PA and lateral views submitted. HISTORY: Follow-up pneumonia FINDINGS: The lungs are clear and there is no pneumothorax, pleural effusion, or focal pneumonia. Mediport ca theter seen. Hyperinflation suggests COPD. Vague density along the anterior margin the right third ri b is stable and nonspecific. May represent area of pleural thickening seen by recent CT scan Hypertro phic change of the spine noted. IMPRESSION: 1. No acute process. Resolution of right-sided infiltrate or atelectasis.
== END | disposition home or self-care (01) ==
LOC: RADXRMAIN 14:39
PROVIDERS: ATTEND Family Medicine
DX: J18.9 Pneumonia, unspecified organism (principal)
CPT/HCPCS: 71020

== ENCOUNTER → 2017-06-26 | Outpatient (CLI) | payer BC ==
[2017-06-26 14:03] LABS: Blood Urea Nitrogen 9 mg/dL (7-17); Non-African American GFR(MDRD) >60 (>60 ml/min/1.73 sqM)
--- NOTE | 2017-06-26 15:04 | CT ---
EXAMINATION TYPE: CT ChestAbdPelvis w con DATE OF EXAM: 06/26/2017 COMPARISON: CT chest dated 12/25/[address] abdomen pelvis dated 11/22/2016 HISTORY: Patient has no complaints at time of service. Follow up for known lymphoma with origination in the pelvis. CT DLP: 1847 mGycm. Automated Exposure Control for Dose Reduction was Utilized. CONTRAST: CT scan of the thorax, abdomen and pelvis is performed with IV Contrast, patient injected with 100 mL of Omnipaque 300. FINDINGS: LUNGS: The lungs are grossly clear, there is no concerning parenchymal mass or nodule identified. T here is no pleural effusion or pneumothorax seen. The tracheobronchial tree is patent. MEDIASTINUM: There are no greater than 1 cm hilar or mediastinal lymph nodes. No pericardial effusi on is seen. OTHER: No additional significant abnormality is seen. LIVER/GB: No significant abnormality is appreciated. The gallbladder wall is slightly hyperemic, like ly an incidental finding. PANCREAS: No significant abnormality is seen. SPLEEN: No significant abnormality is seen. ADRENALS: No significant abnormality is seen. KIDNEYS: No significant abnormality is seen. BOWEL: No significant abnormality is seen. Appendix is visualized, partially air-filled and within n ormal limits of size. Sigmoid diverticula are noted without pericolonic fat stranding. There is mild vasa recta engorgement along the transverse and ascending colon. GENITAL ORGANS: No gross abnormality seen. LYMPH NODES: The previously seen pathologically enlarged and morphologically abnormal bilateral axill fatmata lymph nodes have responded to treatment and resolved. Few scattered tiny morphologically normal-a ppearing axillary lymph nodes are seen. The previously seen precarinal lymph node has decreased in size and is within normal limits. Right hi lar adenopathy has also decreased in size, now within normal limits measuring 7 mm in short axis. No adenopathy is seen within the chest. Some of the previously seen pathologically enlarged periaortic and retrocrural lymph nodes have resol seble in the interim and others decreased in size with the largest periaortic lymph node now measuring 5 mm in short axis, within normal limits. The largest mesenteric lymph node is seen just inferior to the third portion of the duodenum on coronal series 4 image 38 measuring 9 mm in short axis. A single peripancreatic lymph node measures 6 mm, also within normal limits. The ovaries are noted to be fabricio g the pelvic sidewalls. No evidence of inguinal or iliac adenopathy. No pathologically enlarged lymph nodes within the retroperitoneum or mesentery. OSSEOUS STRUCTURES: No significant abnormality is seen. Only mild degenerative changes are visualized within the lumbar spine. OTHER: No significant additional abnormality is seen. IMPRESSION: 1. Significant response to treatment with resolution of many of the previously seen morphologically a bnormal and enlarged lymph nodes within the chest, abdomen and pelvis. There are no remaining pathol ogically enlarged lymph nodes. Largest mesenteric lymph node measures 9 mm and the remaining abdomina l pelvic lymph nodes are sub-6 mm. 2. Gallbladder wall hyperemia, likely an incidental finding but should be correlated with right upper quadrant pain.
== END | disposition home or self-care (01) ==
LOC: RADPROMAIN 13:28
PROVIDERS: ATTEND Internal Medicine Hematology & Oncology
DX: C82.38 Follicular lymphoma grade IIIa, lymph nodes of multiple sites (principal)
CPT/HCPCS: 82565; 84520; 71260; 74177; Q9967; J1642

== ENCOUNTER → 2017-07-28 | Outpatient (CLI) | payer BC ==
--- NOTE | 2017-07-28 10:34 | BD ---
EXAMINATION TYPE: MG DEXA axial skeleton. DATE OF EXAM: 07/28/2017 Comparison to prior exam 11/01/2014 CLINICAL HISTORY: Osteoarthritis, post menopausal female Height: 64 Weight: 172 FRAX RISK QUESTIONS: Alcohol (3 or more units per day): no Family History (Parent hip fracture): no Glucocorticoids (More than 3mos): no (Ex: prednisone, prednisolone, methylprednisolone, dexamethasone, and hydrocortisone). History of Fracture in Adulthood: no Secondary Osteoporosis: 1. Type 1 Diabetes: no 2. Hyperthyroidism: no 3. Menopause before 45: no 4. Malnutrition: no 5. Chronic liver disease: no Rheumatoid Arthritis: no Current Tobacco Use: no RISK FACTORS HISTORY OF: Family History of Osteoporosis: yes, father Active: yes Diet low in dairy products/other sources of calcium: no Postmenopausal woman: yes Take estrogen and/or progesterone medications: no Lost more than 2 inches in height since high school: no Frequent falls: no Poor Health: no Hyperparathyroidism: no Adrenal Insufficiency: no MEDICATIONS: Prednisone or other steroids: no How Long: had one Prolia injection Thyroid Medications: no Osteoporosis Medications: not now Which medication: Prolia How Long: one injection Additional Medications: calcium Additional History: lymphoma/chemo EXAM MEASUREMENTS: Bone mineral densitometry was performed using the PureWRX System. Bone mineral density as measured about the Lumbar spine is: ----- L1-L4(G/cm2): 1.101 T Score Values are as follows: ----- L2: -1.3 ----- L3: 0.6 ----- L4: -1.0 ----- L1-L4: -0.7 Bone mineral density has: Decreased -1.7% since study of: 11/01/2014 Bone mineral density about the R hip (g/cm2): 0.816 Bone mineral density about the L hip (g/cm2): 0.851 T Score values are as follows: -----R Neck: -1.6 -----L Neck: -1.3 -----R Total: -1.4 -----L Total: -1.5 Bone mineral density has: Decreased -1.5% since study of: 11/01/2014 IMPRESSION: Osteopenia NOTE: T-SCORE=SD OF THE YOUNG ADULT MEAN.
--- NOTE | 2017-07-29 10:01 | MM ---
Reason for exam: screening (asymptomatic). Last mammogram was performed 1 year and 5 months ago. History: Patient is postmenopausal and has history of other cancer at age 61. Family history of breast cancer in mother at age 50, breast cancer in maternal aunt, breast cancer in maternal cousin, and breast cancer in maternal uncle. Took hormonal contraceptives for 1 month. Physical Findings: A clinical breast exam by your physician is recommended on an annual basis and results should be correlated with mammographic findings. MG 3D Screening Mammo W/Cad Bilateral CC and MLO view(s) were taken. Prior study comparison: February 25, 2016, bilateral MG 3d screening mammo w/cad. November 01, 2014, bilateral MG screening mammo w CAD. The breast tissue is heterogeneously dense. This may lower the sensitivity of mammography. No significant changes when compared with prior studies. ASSESSMENT: Benign, BI-RAD 2 RECOMMENDATION: Routine screening mammogram of both breasts in 1 year.
== END | disposition home or self-care (01) ==
LOC: RADMAMWWP 08:57
PROVIDERS: ATTEND Family Medicine
DX: Z12.31 Encounter for screening mammogram for malignant neoplasm of breast (principal); M85.80 Other specified disorders of bone density and structure, unspecified site
CPT/HCPCS: 77080; 77063; G0202

== ENCOUNTER → 2017-08-10 | Outpatient (CLI) | payer BC ==
--- NOTE | 2017-08-10 09:05 | US ---
EXAMINATION TYPE: US gallbladder DATE OF EXAM: 08/10/2017 COMPARISON: CT 06/26/2017 CLINICAL HISTORY: 62-year-old female K80.10 Cholecystitis. Cholecystitis, nausea, pain. TECHNIQUE: Multiple sonographic images of the right upper quadrant are obtained. FINDINGS: Liver Length: 11.4 cm Gallbladder Wall: 0.2 cm CBD: 2.9 mm Right Kidney: 10.6 x 4.9 x 4.8 cm Pancreas: visualized portions wnl, tail obscured by overlying midline bowel gas Liver: Coarsened echotexture could be on a technical basis. No focal lesion seen. Gallbladder: wnl Evidence for sonographic Martines's sign: yes CBD: wnl Right Kidney: No hydronephrosis IMPRESSION: 1. Coarsened echotexture of the liver could be on a technical basis or could represent nonspecific he patocellular disease. Correlate with LFTs and patient risk factors. 2. No sonographic evidence for cholelithiasis or acute cholecystitis. Positive sonographic Martines sig n could reflect referred pain. If further imaging evaluation of the gallbladder is indicated, HIDA sc an with ejection fraction can be performed.
== END | disposition home or self-care (01) ==
LOC: RADUSWWP 08:18
PROVIDERS: ATTEND Surgery
DX: R93.2 Abnormal findings on diagnostic imaging of liver and biliary tract (principal)
CPT/HCPCS: 76705

== ENCOUNTER → 2018-02-12 | Outpatient (CLI) | payer BC ==
--- NOTE | 2018-02-12 11:05 | XR ---
EXAMINATION TYPE: XR Hip Bilateral Complete DATE OF EXAM: 02/12/2018 CLINICAL HISTORY: Pain TECHNIQUE: AP and frogleg views of the bilateral hip are obtained. COMPARISON: None. FINDINGS: There is mild concentric narrowing the joint space and hypertrophic change of the acetabulu m bilaterally. No erosive changes. Osseous structures intact. Vascular calcifications in the pelvis noted. IMPRESSION: 1. Bilateral hip arthropathy. Correlate for femoral acetabular impingement.
--- NOTE | 2018-02-12 11:07 | XR ---
EXAM TYPE: LUMBAR SPINE X RAY SERIES COMPARISON: NONE HISTORY: Pain TECHNIQUE: 4 views are submitted. FINDINGS: Alignment is anatomic. The pedicles are intact. The transverse processes are intact. There is no s pondylolysis or spondylolisthesis. Hypertrophic changes are seen is facet arthropathy at levels L2-S 1. Hypertrophic changes noted anteriorly. Diffuse osteopenia noted. IMPRESSION: 1. Multilevel facet arthropathy with foraminal encroachment suspected L4-5 and L5-S1..
== END | disposition home or self-care (01) ==
LOC: RADXRMAIN 07:49
PROVIDERS: ATTEND Family Medicine
DX: M16.0 Bilateral primary osteoarthritis of hip (principal); M54.5 Low back pain
CPT/HCPCS: 72110; 73521

== ENCOUNTER → 2018-06-23 | Outpatient (CLI) | payer BC ==
--- NOTE | 2018-06-23 08:13 | XR ---
EXAMINATION TYPE: XR cervical spine comp DATE OF EXAM: 06/23/2018 COMPARISON: NONE HISTORY: Pain TECHNIQUE: Four views are submitted. FINDINGS: The odontoid is intact. There are no compression deformities. The prevertebral soft tissue structur es are within normal limits. There is facet arthropathy at all levels. Mild multilevel degenerative disc disease. Note is made alignment is demonstrated to the level of C7. Lung apices demonstrate hype rinflation suggestive of COPD. IMPRESSION: 1. Mild multilevel degenerative disc disease. Consider MRI follow-up as clinically warranted. 2. Multilevel facet arthropathy. Suspect multilevel foraminal encroachment greater on the left with t he most marked findings at levels C3-4 and C4-C5.
== END | disposition home or self-care (01) ==
LOC: RADXRMAIN 07:24
PROVIDERS: ATTEND Family Medicine
DX: M50.30 Other cervical disc degeneration, unspecified cervical region (principal); M46.92 Unspecified inflammatory spondylopathy, cervical region
CPT/HCPCS: 72050

== ENCOUNTER → 2018-08-09 | Outpatient (CLI) | payer BC ==
--- NOTE | 2018-08-10 09:29 | MM ---
Reason for exam: screening (asymptomatic). Last mammogram was performed 1 year ago. History: Patient is postmenopausal and has history of other cancer at age 61. Family history of breast cancer in mother at age 50, breast cancer in maternal aunt, breast cancer in maternal cousin, and breast cancer in maternal uncle. Took hormonal contraceptives for 1 month. Physical Findings: A clinical breast exam by your physician is recommended on an annual basis and results should be correlated with mammographic findings. MG 3D Screening Mammo W/Cad Bilateral CC and MLO view(s) were taken. Prior study comparison: July 28, 2017, bilateral MG 3d screening mammo w/cad. February 25, 2016, bilateral MG 3d screening mammo w/cad. There are scattered fibroglandular densities. No significant changes when compared with prior studies. ASSESSMENT: Benign, BI-RAD 2 RECOMMENDATION: Routine screening mammogram of both breasts in 1 year.
== END | disposition home or self-care (01) ==
LOC: RADMAMWWP 08:08
PROVIDERS: ATTEND Family Medicine
DX: Z12.31 Encounter for screening mammogram for malignant neoplasm of breast (principal)
CPT/HCPCS: 77063; 77067

== ENCOUNTER → 2018-08-23 | Outpatient (CLI) | payer BC ==
[2018-08-23 09:32] LABS: ALT 25 U/L (9-52); AST 27 U/L (14-36); Cholesterol 239 mg/dL (<200); HDL Cholesterol 63 mg/dL (40-60); LDL Cholesterol,Calculated 155 mg/dL (0-99); Triglycerides 104 mg/dL (<150)
[2018-08-23 19:35] LABS: Hemoglobin A1C 5.5 % (4.0-6.0)
== END | disposition home or self-care (01) ==
LOC: LABWHC1 08:20
PROVIDERS: ATTEND Family Medicine
DX: E78.5 Hyperlipidemia, unspecified (principal); E16.2 Hypoglycemia, unspecified; M54.12 Radiculopathy, cervical region; R10.11 Right upper quadrant pain
CPT/HCPCS: 36415; 80061; 83036; 84450; 84460

== ENCOUNTER → 2018-10-01 | Outpatient (CLI) | payer BC ==
--- NOTE | 2018-10-01 08:07 | CT ---
EXAMINATION TYPE: CT brain wo/w con DATE OF EXAM: 10/01/2018 COMPARISON: None HISTORY: Patient ocmplains of episodes of vision loss and headaches. History of lymphoma in groin. CT DLP: 1485mGycm CONTRAST: CT scan of the head is performed without and with IV Contrast, patient injected with 100 mL of Isovue 300. Unenhanced followed by contrast enhanced CT of the brain is submitted for evaluation. The ventricles are midline. There is no evidence for intracranial hemorrhage or extra-axial collection. No mass e ffects are identified. Visualized bony calvarium is intact. Contrast is administered and no enhanci ng lesions are detected. No pathologic enhancement is identified. If symptoms persist consider MRI. IMPRESSION: No acute intracranial process or enhancing lesion identified.
== END ==
LOC: RADCTMAIN 07:26
PROVIDERS: ATTEND Family Medicine
DX: R51 Headache (principal)
CPT/HCPCS: 70470; Q9967

== ENCOUNTER → 2018-12-31 | Outpatient (CLI) | payer BC ==
--- NOTE | 2018-12-31 13:07 | CT ---
EXAMINATION TYPE: CT ChestAbdPelvis w con DATE OF EXAM: 12/31/2018 COMPARISON: CT chest abdomen and pelvis December 28, [address] HISTORY: Follicular lymphoma grade IIIa, multi sites CT DLP: 1507 mGycm. Automated Exposure Control for Dose Reduction was Utilized. CONTRAST: CT scan of the thorax, abdomen and pelvis is performed with oral and with IV Contrast, patient inject ed with 100 ml mL of Isovue 300. FINDINGS: LUNGS: The lungs are grossly clear, there is no concerning parenchymal mass or nodule identified. T here is no pleural effusion or pneumothorax seen. The tracheobronchial tree is patent. MEDIASTINUM: There are no greater than 1 cm hilar or mediastinal lymph nodes. No cardiomegaly or pe ricardial effusion is seen. OTHER: No suspicious axillary adenopathy on current study. LIVER/GB: No significant abnormality is appreciated. PANCREAS: No significant abnormality is seen. SPLEEN: No significant abnormality is seen. ADRENALS: Slight thickening to left adrenal gland favors benign hyperplasia. KIDNEYS: No significant abnormality is seen. BOWEL: The oral contrast reaches level proximal transverse colon. There is no suspicious small or lar ge bowel dilatation. There is low-lying cecum into the right pelvis redemonstrated. GENITAL ORGANS: Anteverted uterus is seen. Scattered pelvic phleboliths are redemonstrated including phlebolith anterior to the bladder LYMPH NODES: No greater than 1cm abdominal or pelvic lymph nodes are appreciated on current study inc luding evaluation of retroperitoneum and bilateral groin region. OSSEOUS STRUCTURES: No significant abnormality is seen. OTHER: No significant additional abnormality is seen. IMPRESSION: No new adenopathy identified to suggest active lymphoma recurrence. No significant change from most recent CT.
== END | disposition home or self-care (01) ==
LOC: RADCTMAIN 09:47
PROVIDERS: ATTEND Internal Medicine Hematology & Oncology
DX: Z08 Encounter for follow-up examination after completed treatment for malignant neoplasm (principal); Z85.72 Personal history of non-Hodgkin lymphomas
CPT/HCPCS: 71260; 74177; Q9967

== ENCOUNTER → 2020-01-20 | Outpatient (CLI) | payer BC ==
--- NOTE | 2020-01-20 14:47 | CT ---
EXAMINATION TYPE: CT ChestAbdPelvis w con DATE OF EXAM: 01/20/2020 COMPARISON: 12/31/2018 and 12/28/2017 HISTORY: 64-year-old female observation for metastases leg swelling, history of lymphoma TECHNIQUE: Contiguous axial scanning of the chest, abdomen, and pelvis performed with IV Contrast, pa tient injected with 100 mL of Isovue 300. Delayed images through the kidneys were obtained. Coronal/s agittal reconstructions performed. CT DLP: 714.5 mGycm Automated exposure control for dose reduction was used. FINDINGS: CHEST: The heart is normal size without pericardial effusion. Aorta normal caliber with conventional arch vessel branching anatomy. No thoracic lymphadenopathy by CT size criteria. Some mild strandy areas of atelectasis are present in the lungs. No consolidation or pleural effusion . ABDOMEN: No focal liver lesion or biliary ductal dilatation. Portal venous system is patent. Gallbladder, adrenal glands, kidneys, spleen, and pancreas appear within normal limits. Mild atherosclerotic calcifications infrarenal abdominal aorta without aneurysm. No mesenteric or retroperitoneal lymphadenopathy. Normal appendix. Mild stool burden. Diverticular change along the proximal to mid sigmoid colon. No p ericolonic inflammatory change. PELVIS: Bladder is urine distended. Uterus is anteverted. Pelvic phleboliths. Both ovaries are visualized. No abnormal fluid collection in the pelvis or pelvic lymphadenopathy. BONES: Mild degenerative changes of the hips. Facet arthropathy lower lumbar spine. IMPRESSION: NO SUSPICIOUS LYMPHADENOPATHY TO SUGGEST RECURRENT DISEASE. INCIDENTAL: PROXIMAL TO MID SIGMOID DIVERTICULOSIS.
== END | disposition home or self-care (01) ==
LOC: RADCTMAIN 10:27
PROVIDERS: ATTEND Internal Medicine Hematology & Oncology
DX: Z03.89 Encounter for observation for other suspected diseases and conditions ruled out (principal); C82.38 Follicular lymphoma grade IIIa, lymph nodes of multiple sites
CPT/HCPCS: 71260; 74177; Q9967

== ENCOUNTER → 2020-06-08 | Outpatient (CLI) | payer BC, MEDICARE ==
--- NOTE | 2020-06-11 11:58 | MM ---
Reason for exam: screening (asymptomatic). Last mammogram was performed 1 year and 10 months ago. History: Patient is postmenopausal and has history of other cancer at age 61. Family history of breast cancer in mother at age 50, breast cancer in maternal aunt, breast cancer in maternal cousin, and breast cancer in maternal uncle. Took hormonal contraceptives for 1 month. Physical Findings: A clinical breast exam by your physician is recommended on an annual basis and results should be correlated with mammographic findings. MG 3D Screening Mammo W/Cad Bilateral CC and MLO view(s) were taken. Prior study comparison: August 09, 2018, bilateral MG 3d screening mammo w/cad. July 28, 2017, bilateral MG 3d screening mammo w/cad. The breast tissue is heterogeneously dense. This may lower the sensitivity of mammography. No significant changes when compared with prior studies. ASSESSMENT: Negative, BI-RAD 1 RECOMMENDATION: Routine screening mammogram of both breasts in 1 year.
== END | disposition home or self-care (01) ==
LOC: RADMAMWWP 14:43
PROVIDERS: ATTEND Family Medicine
DX: Z12.31 Encounter for screening mammogram for malignant neoplasm of breast (principal); Z78.0 Asymptomatic menopausal state
CPT/HCPCS: 77063; 77067

== ENCOUNTER → 2020-08-10 | Outpatient (CLI) | payer MEDICARE, BC ==
[2020-08-10 08:44] LABS: HCT 40.3 % (34.0-46.0); HGB 13.1 gm/dL (11.4-16.0); MCH 30.5 pg (25.0-35.0); MCHC 32.4 g/dL (31.0-37.0); MCV 94.1 fL (80.0-100.0); Mean Platelet Volume 7.4; Platelet Count 224 k/uL (150-450); RBC 4.29 m/uL (3.80-5.40); RDW 12.2 % (11.5-15.5); WBC 4.4 k/uL (3.8-10.6)
[2020-08-10 09:02] LABS: D-Dimer 0.97 mg/L FEU (<0.60); INR 0.9 (<1.2); Prothrombin Time 9.5 sec (9.0-12.0)
[2020-08-10 18:30] LABS: African American GFR (CKD) 110.9 (60.0-200.0); Albumin 4.1 g/dL (3.80-4.90); Albumin/Globulin Ratio 2.05 (1.60-3.17); Anion Gap 5.7 mmol/L (4.00-12.00); BUN/Creat Ratio 18.33 Ratio (12.00-20.00); Calcium 9.1 mg/dL (8.7-10.3); Carbon Dioxide 26.3 mmol/L (21.6-31.8); Non-African American GFR(CKD) 95.7 (60.0-200.0); Potassium 4.7 mmol/L (3.5-5.5); Total Bilirubin 0.4 mg/dL (0.3-1.2); Total Protein 6.1 g/dL (6.2-8.2)
== END | disposition home or self-care (01) ==
LOC: LABWHC1 07:13
PROVIDERS: ATTEND Family Medicine
DX: C85.90 Non-Hodgkin lymphoma, unspecified, unspecified site (principal); R53.83 Other fatigue; Z86.718 Personal history of other venous thrombosis and embolism
CPT/HCPCS: 36415; 80053; 84484; 85027; 85379; 85610

== ENCOUNTER → 2020-08-14 | Outpatient (CLI) | payer MEDICARE, BC ==
--- NOTE | 2020-08-15 07:00 | US ---
EXAMINATION TYPE: US venous doppler duplex LE DATE OF EXAM: 08/14/2020 4:58 PM COMPARISON: NONE CLINICAL HISTORY: R79.1 abn d dimer. Pain right leg. Edema bilateral legs, worse on the right. Elevat ed D-Dimer SIDE PERFORMED: bilateral TECHNIQUE: The lower extremity deep venous system is examined utilizing real time linear array sonog angeline with graded compression, doppler sonography and color-flow sonography. VESSELS IMAGED: External Iliac Vein (EIV) Common Femoral Vein Deep Femoral Vein Greater Saphenous Vein * Femoral Vein Popliteal Vein Small Saphenous Vein * Proximal Calf Veins (* superficial vessels) Right Leg: No evidence of DVT Left Leg: No evidence of DVT IMPRESSION: No evidence for DVT at this time.
== END | disposition home or self-care (01) ==
LOC: RADUSWWP 16:31
PROVIDERS: ATTEND Family Medicine
DX: R22.43 Localized swelling, mass and lump, lower limb, bilateral (principal); R79.1 Abnormal coagulation profile
CPT/HCPCS: 93970

== ENCOUNTER → 2020-08-15 | Outpatient (CLI) | payer MEDICARE, BC | END | disposition home or self-care (01) | LOC: LABWHC1 07:09 | PROVIDERS: ATTEND Family Medicine | DX: R60.9 Edema, unspecified (principal); Z86.718 Personal history of other venous thrombosis and embolism | CPT/HCPCS: 36415; 83880 ==

== ENCOUNTER → 2020-08-27 | Outpatient (CLI) | payer MEDICARE, BC ==
[2020-08-27 07:17] LABS: African American GFR (CKD) >90 (>60 ml/min/1.73 sqM); Blood Urea Nitrogen 10 mg/dL (7-17); Non-African American GFR(CKD) >90 (>60 ml/min/1.73 sqM)
--- NOTE | 2020-08-27 09:57 | CT ---
EXAMINATION TYPE: CT ChestAbdPelvis w con DATE OF EXAM: 08/27/2020 COMPARISON: 01/20/20 HISTORY: Lymphoma CT DLP: 820.2 mGycm CONTRAST: CT scan of the chest, abdomen and pelvis is performed with Oral Contrast and with IV Contrast, patien t injected with 100 mL of [address]vue 300. [address] Chest: LUNGS: The lungs are clear and free of infiltrate or atelectasis. No pulmonary nodule or mass is det ected. No pleural effusion or CT evidence of interstitial lung disease. MEDIASTINUM: Thoracic aorta is of normal caliber. The heart is not enlarged. No evidence for media stinal mass or adenopathy. HILAR STRUCTURES: No evidence for mass. No hilar adenopathy is appreciated. OTHER: No significant abnormality. CONTRAST CT ABDOMEN AND PELVIS FINDINGS: LIVER/GB: No calcified gallstones. No space occupying hepatic lesion. Biliary tree is of normal ca liber. PANCREAS: No inflammation. No distinct mass. SPLEEN: No splenic enlargement. No lesion seen. ADRENALS: No nodule. No thickening. KIDNEYS/BLADDER: No hydronephrosis. No nephrolithiasis. No distinct renal mass. BOWEL: Normal appendix. Normal bowel caliber. No inflammation. GENITAL ORGANS: No gross abnormality. LYMPH NODES: No greater than 1cm abdominal or pelvic lymph nodes are appreciated. AORTA: No significant abnormality. OSSEOUS STRUCTURES: No significant abnormality is seen. OTHER: No significant additional abnormality is seen. IMPRESSION: 1. No evidence for adenopathy within the chest abdomen or pelvis at this time.
== END | disposition home or self-care (01) ==
LOC: RADCTMAIN 06:25
PROVIDERS: ATTEND Internal Medicine Hematology & Oncology
DX: C82.38 Follicular lymphoma grade IIIa, lymph nodes of multiple sites (principal); Z88.8 Allergy status to other drugs, medicaments and biological substances
CPT/HCPCS: 82565; 84520; 71260; 74177; 36415; Q9967 ×2

== ENCOUNTER → 2020-09-07 | Outpatient (CLI) | payer MEDICARE, BC | END | disposition home or self-care (01) | LOC: LABWHC1 09:00 | PROVIDERS: ATTEND Family Medicine | DX: Z03.818 Encounter for observation for suspected exposure to other biological agents ruled out (principal) | CPT/HCPCS: U0003; C9803 ==

== ENCOUNTER → 2021-02-15 | Outpatient (CLI) | payer MEDICARE, BC ==
--- NOTE | 2021-02-15 15:47 | XR ---
Cervical spine HISTORY: Neck pain 5 views of the cervical spine Correlation prior exam 06/23/2018 Facet arthropathy changes are present. Oblique images not optimal to evaluate foraminal encroachment on the right at the lower levels, there is left-sided foraminal encroachment on the left at C3-4. Cer vical vertebral bodies show preserved height and alignment. Bone mineralization is reduced. Some loss of disc height present at C4-5. Minimal anterolisthesis grade 1 C4-5. There is some spondylosis at C 5-6. C7-T1 not included on exam. IMPRESSION: Degenerative disc disease, facet arthropathy, limitations as described, foraminal encroac hment
== END | disposition home or self-care (01) ==
LOC: RADXRMAIN 10:57
PROVIDERS: ATTEND Family Medicine
DX: M50.30 Other cervical disc degeneration, unspecified cervical region (principal); M47.812 Spondylosis without myelopathy or radiculopathy, cervical region; M99.71 Connective tissue and disc stenosis of intervertebral foramina of cervical region
CPT/HCPCS: 72050

== ENCOUNTER 2021-08-12 08:20 | Day surgery (SDC) | payer MEDICARE, BC ==
[2021-08-07 09:56] VITALS: BMI 28.3
--- NOTE | 2021-08-12 08:03 | P.GSHP ---
History of Present Illness H&P Date: 08/12/21 CHIEF COMPLAINT: Colon screen HISTORY OF PRESENT ILLNESS: The patient is a 66-year-old female who presents for colon screen. Lower endoscopy was offered for further evaluation and management. PAST MEDICAL HISTORY: Please see list. PAST SURGICAL HISTORY: Please see list. MEDICATIONS: Please see list. ALLERGIES: Please see list. SOCIAL HISTORY: No illicit drug use FAMILY HISTORY: No reports of Crohn disease or ulcerative colitis. REVIEW OF ORGAN SYSTEMS: CONSTITUTIONAL: No reports of fevers or chills. PHYSICAL EXAM: VITAL SIGNS: Stable GENERAL: Well-developed pleasant in no acute distress. HEENT: No scleral icterus. Extraocular movements grossly intact. Moist buccal mucosa. NECK: Supple without lymphadenopathy. CHEST: Unlabored respirations. Equal bilateral excursions. CARDIOVASCULAR: Regular rate and rhythm. Distal 2+ pulses. ABDOMEN: Soft, nontender, nondistended. MUSCULOSKELETAL: No clubbing, cyanosis, or edema. ASSESSMENT: 1. Colon screen. PLAN: 1. Recommend proceeding with a lower endoscopy Past Medical History Past Medical History: Deep Vein Thrombosis (DVT), GERD/Reflux, Osteoarthritis (OA) Additional Past Medical History / Comment(s): DIVERTICULAR DIEASE, PEPTIC ULCER, RT LEG DVT, JUST FINISHED ANTIBIOTICS FOR INFECTED MOSQUITO BITES ON LT THIGH AND ANKLE-RESOLVED History of Any Multi-Drug Resistant Organisms: None Reported Past Surgical History: Tubal Ligation Additional Past Surgical History / Comment(s): EGD, COLONOSCOPY, DENTAL IMPLANTS, LT GROIN LYMPH NODE REMOVED, VV STRIPPING Past Anesthesia/Blood Transfusion Reactions: Previous Problems w/ Anesthesia Additional Past Anesthesia/Blood Transfusion Reaction / Comment(s): " PATIENT STATES WOKE UP DURING SX" WITH MAC AND VEIN STRIPPING Smoking Status: Former smoker - Past Family History Mother Family Medical History: Cancer, Hypertension Additional Family Medical History / Comment(s): BREAST, COLON,SKIN CANCER Father Family Medical History: Cancer Additional Family Medical History / Comment(s): PROSTATE CANCER, POLIO, HEART DISEASE Sister(s) Family Medical History: Neurologic Disorder Medications and Allergies Home Medications Medication Instructions Recorded Confirmed Type HYDROcodone/APAP 10-325MG [[place] 1 tab PO TID PRN 11/20/16 08/07/21 History 10-325] Fluticasone/Vilanterol [Breo 1 puff INHALATION BID PRN 03/09/17 08/07/21 History Ellipta 200-25 Mcg INH] Allergies Allergy/AdvReac Type Severity Reaction Status Date / Time acyclovir [From Zovirax] Allergy Dyspnea Verified 08/07/21 09:46 cortisone Allergy Swelling Verified 08/07/21 09:46 WITH INJECTION
[~2021-08-12 08:20] MED LIST changes: -ALPRAZolam 0.25 MG TAB PO PRN; -DEXAMETHASONE SOD PHOSPHATE 10 MG/ML 1 ML VIAL IV ONE; -HEPARIN SODIUM,PORCINE 5,000 UNIT/ML 1 ML VIAL SQ ONE; -HYDROmorphone 1 MG/ML 1 ML SYRINGE IVP PRN; -MIDAZOLAM 2 MG/2 ML VIAL IV PRN; -ONDANSETRON 4 MG/2 ML VIAL IVP ONE; -Pre Op ABX Message 1 EACH MISC MISCELLANE ONE
[2021-08-12 08:43] VITALS: TEMP 98.3
[2021-08-12] MEDS ORDERED: LIDOCAINE 1% (10MG/ML) FOR IV START INTRADERMA ONE (08:51)
[2021-08-12] MEDS ORDERED: PROPOFOL 10 MG/ML 20 ML VIAL IV ONE (08:58)
--- NOTE | 2021-08-12 09:24 | P.PCN ---
Date of Procedure: 08/12/21 Description of Procedure: PREOPERATIVE DIAGNOSIS: Colonoscopy screening. POSTOPERATIVE DIAGNOSIS: Colonoscopy screening. Diverticulosis, scattered. OPERATION: Colonoscopy to the cecum, ileocecal valve and appendiceal orifice. SURGEON: Kelly Brewer MD. ANESTHESIA: MAC. INDICATIONS: The patient is a 66-year-old female who presents for colonoscopy screening. Benefits and risks were described and informed consent was obtained. DESCRIPTION OF PROCEDURE: The patient had undergone Sutab prep. The patient had been brought into the operating room and laid in the left lateral decubitus position. After adequate intravenous sedation, the rectum was examined with 2% lidocaine jelly. External hemorrhoids were encountered. The rectal tone was within normal limits. No lesions were palpated in the rectal vault. An Olympus colonoscope was advanced until the cecum, ileocecal valve and appendiceal orifice were clearly viewed. The prep was excellent. Scattered diverticulosis was encountered. No colonic polyps were found. No evidence of focal colitis was found. Retroflexion of the scope demonstrated grade 2 internal hemorrhoids without active bleeding or inflammation. The colon was desufflated. The patient had tolerated the procedure well. Withdrawal time was over 6 minutes. FINDINGS: Aronchick preparation quality scale 2 (1-5) Internal hemorrhoids, grade 1 External prolapsed hemorrhoids. No arteriovenous malformations. No adenomatous polyps. No focal colitis. RECOMMENDATIONS: Lower endoscopy in 3 years, 2023 Plan - Discharge Summary Discharge Rx Participant: No New Discharge Prescriptions: Continue HYDROcodone/APAP 10-325MG [[place] 10-325] 1 tab PO TID PRN PRN Reason: Pain Fluticasone/Vilanterol [Breo Ellipta 200-25 Mcg Inhaler] 1 puff INHALATION BID PRN PRN Reason: Shortness Of Breath Discharge Medication List HYDROcodone/APAP 10-325MG [[place] 10-325] 1 tab PO TID PRN 11/20/16 [History] Fluticasone/Vilanterol [Breo Ellipta 200-25 Mcg Inhaler] 1 puff INHALATION BID P RN 03/09/17 [History] Follow up Appointment(s)/Referral(s): Kelly Brewer MD [STAFF PHYSICIAN] - As Needed Patient Instructions/Handouts: *Surgery [facility] - (Anesthesia) Endoscopy Discharge Instructions, Colonoscopy (DC), Diverticulosis Diet (GEN), Diverticulosis (DC) Activity/Diet/Wound Care/Special Instructions: Repeat colonoscopy 3 years, 2023 Discharge Disposition: HOME SELF-CARE
[2021-08-12 09:26] VITALS: RESP 16
[2021-08-12 09:38] VITALS: BP 103/65; PULSE 69
== END 2021-08-12 10:14 | disposition home or self-care (01) ==
LOC: ORWHC2ENDO 08:20
PROVIDERS: ATTEND Surgery Plastic and Reconstructive Surgery
DX: Z12.11 Encounter for screening for malignant neoplasm of colon (principal); K57.90 Diverticulosis of intestine, part unspecified, without perforation or abscess without bleeding; Z86.718 Personal history of other venous thrombosis and embolism; M19.90 Unspecified osteoarthritis, unspecified site; K21.9 Gastro-esophageal reflux disease without esophagitis; Z79.899 Other long term (current) drug therapy
CPT/HCPCS: G0121; J2704

== ENCOUNTER → 2021-08-23 | Outpatient (CLI) | payer MEDICARE, BC ==
--- NOTE | 2021-09-13 08:18 | EM ---
Event monitor shows sinus rhythm Sinus tachycardia Infrequent PACs Chest discomfort corresponded to sinus tachycardia and sinus rhythm There are no sustained or nonsustained arrhythmias MTDD
== END | disposition home or self-care (01) ==
LOC: RADECHMAIN 12:22
PROVIDERS: ATTEND Family Medicine
DX: I49.1 Atrial premature depolarization (principal); R00.0 Tachycardia, unspecified
CPT/HCPCS: 93270

== ENCOUNTER → 2021-11-11 | Outpatient (CLI) | payer MEDICARE, BC ==
--- NOTE | 2021-11-11 14:21 | BD ---
EXAMINATION TYPE: Axial Bone Density DATE OF EXAM: 11/11/2021 COMPARISON: 07.28.2017 DEXA bone scan. CLINICAL HISTORY: 66 YR OLD FEMALE....ICD-10 CODE: Z78.0 MENOPAUSAL Height: 63.3 Weight: 169 FRAX RISK QUESTIONS: Family History (Parent hip fracture): NO FX History of Fracture in Adulthood: YES 3. Menopause before 45: AT 45 YRS OLD RISK FACTORS HISTORY OF: HX OF RIB FX AN ADULT Family History of Osteoporosis: YES, FATHER, NO FX Postmenopausal woman: YES, AT AGE 45 YRS OLD Hyperparathyroidism: NO Adrenal Insufficiency: NO MEDICATIONS: Additional Medications: HX OF CHEMO, LYMPHOMA, VIT D, AND CALCIUM WHEN SPORADICALLY, MULTIVITAMIN Additional History: LYMPHOMA, EXAM MEASUREMENTS: Bone mineral densitometry was performed using the Vite System. Bone mineral density as measured about the Lumbar spine is: ----- L1-L4(G/cm2): 1.156 T Score Values are as follows: ----- L1: -0.8 ----- L2: -0.6 ----- L3: 0.7 ----- L4: -0.5 ----- L1-L4: -0.2 Bone mineral density has: Increased 5.1% since study of: 07.28.2017 Bone mineral density about the R hip (g/cm2): 0.811 Bone mineral density about the L hip (g/cm2): 0.824 T Score values are as follows: -----R Neck: -1.6 -----L Neck: -1.4 -----R Total: -1.6 -----L Total: -1.5 Bone mineral density has: Decreased -1.1% since study of: 07.28.2017 FRAX%s: THERE IS A 15.3% CHANCE FOR A MAJOR OSTEOPOROTIC FX AND A 1.9% FOR HIPS......PROBABILITY F OR FX IN 10 YRS TIME IMPRESSION: Osteopenia (T Score between -2.5 and -1) remains present There is slightly increased risk of fracture and the patient may be considered for treatment. Re-Screen 2-5 years. NOTE: T-SCORE=SD OF THE YOUNG ADULT MEAN.
--- NOTE | 2021-11-12 12:28 | MM ---
Reason for exam: screening (asymptomatic). Last mammogram was performed 1 year and 5 months ago. History: Patient is postmenopausal and has history of other cancer at age 61. Family history of breast cancer in mother at age 50, breast cancer in maternal aunt at age 50, breast cancer in maternal cousin, and breast cancer in maternal uncle. Took hormonal contraceptives for 1 month. Physical Findings: A clinical breast exam by your physician is recommended on an annual basis and results should be correlated with mammographic findings. MG 3D Screening Mammo W/Cad Bilateral CC and MLO view(s) were taken. Prior study comparison: June 08, 2020, bilateral MG 3d screening mammo w/cad. August 09, 2018, bilateral MG 3d screening mammo w/cad. There are scattered fibroglandular densities. No significant changes when compared with prior studies. ASSESSMENT: Benign, BI-RAD 2 RECOMMENDATION: Routine screening mammogram of both breasts in 1 year.
== END | disposition home or self-care (01) ==
LOC: RADMAMWWP 12:33
PROVIDERS: ATTEND Family Medicine
DX: Z12.31 Encounter for screening mammogram for malignant neoplasm of breast (principal); M85.89 Other specified disorders of bone density and structure, multiple sites; Z78.0 Asymptomatic menopausal state; Z80.3 Family history of malignant neoplasm of breast
CPT/HCPCS: 77063; 77067; 77080

== ENCOUNTER → 2022-06-20 | Outpatient (CLI) | payer MEDICARE, BC ==
[2022-06-20 08:05] LABS: African American GFR (CKD) >90 (>60 ml/min/1.73 sqM); Blood Urea Nitrogen 16 mg/dL (7-17); Non-African American GFR(CKD) >90 (>60 ml/min/1.73 sqM)
--- NOTE | 2022-06-20 11:34 | CT ---
EXAMINATION TYPE: CT ChestAbdPelvis w con DATE OF EXAM: 06/20/2022 COMPARISON: 08/27/2020, 01/20/2020 HISTORY: 77-year-old female C85.0, Lymphoma TECHNIQUE: Contiguous axial scanning of the chest, abdomen, and pelvis performed with IV Contrast, pa tient injected with 70 ML mL of Isovue 300. Delayed images through the kidneys were obtained. Coronal /sagittal reconstructions performed. CT DLP: 1481 mGycm Automated exposure control for dose reduction was used. FINDINGS: CHEST: Heart normal size without pericardial effusion. Aorta normal caliber with conventional arthrosis branching anatomy. New, enlarging left superior mediastinal/peritracheal lymph nodes measuring up to 1.1 cm. New left supraclavicular lymph nodes measuring up to 1.5 cm. New bilateral axillary lymph nodes measuring up to 1.5 cm. New retrocrural lymph nodes measuring up to 1.3 cm. No consolidation or pleural effusion. ABDOMEN: Small hiatal hernia. No focal liver lesion. Portal venous system is patent. No biliary ductal dilatation. Gallbladder, adrenal glands, right kidney, spleen, and pancreas within normal limits. There is new moderate left hydronephrosis. There is new mesenteric adenopathy measuring up to 1.4 cm. New conglomerate retroperitoneal lymphadenopathy, greatest along the left periaortic region measuring up to 3.4 cm and left common iliac chain lymphadenopathy measuring up to 2.5 and 3.1 cm through whic h the left ureter courses. No dilated small bowel, free fluid, or free air. Oral contrast progressed to the splenic flexure of the colon. Sigmoid diverticulosis. No pericolonic inflammatory change. PELVIS: Bladder distended. Uterus anteverted. Numerous pelvic phleboliths. Both ovaries are visualized. Inguinal lymphadenopathy measuring up to 1.9 cm. New external iliac chain lymphadenopathy measuring u p to 3.0 x 1.6 cm. BONES: Mild degenerative change at the hips. Facet arthropathy scattered within the lumbar spine. Mild endpl ate spondylosis mid to lower thoracic spine. No osseous destructive process. IMPRESSION: 1. EVIDENCE OF RECURRENT DISEASE. THERE IS NEW SUPERIOR MEDIASTINAL, LEFT SUPRACLAVICULAR, BILATERAL AXILLARY, RETROCRURAL, MESENTERIC, RETROPERITONEAL, AND PELVIC LYMPHADENOPATHY, LARGEST MEASURING 3.4 CM. 2. THE LEFT URETER COURSES THROUGH THE LEFT PERIAORTIC LYMPHADENOPATHY. THERE IS A RESULTANT MODERATE LEFT-SIDED OBSTRUCTIVE UROPATHY WITH HYDRONEPHROSIS. 3. INCIDENTAL COLON SMALL HIATAL HERNIA AND MILD SIGMOID DIVERTICULOSIS.
== END | disposition home or self-care (01) ==
LOC: RADCTMAIN 07:16
PROVIDERS: ATTEND Family Medicine
DX: C85.90 Non-Hodgkin lymphoma, unspecified, unspecified site (principal); N13.30 Unspecified hydronephrosis; K44.9 Diaphragmatic hernia without obstruction or gangrene; K57.30 Diverticulosis of large intestine without perforation or abscess without bleeding
CPT/HCPCS: 82565; 84520; 71260; 74177; 36415; Q9967 ×2

== ENCOUNTER → 2022-12-11 | Outpatient (CLI) | payer MEDICARE, BC | END | disposition home or self-care (01) | LOC: LABWHC1 07:15 | PROVIDERS: ATTEND Family Medicine | DX: B34.9 Viral infection, unspecified (principal) | CPT/HCPCS: 87103 ==

== ENCOUNTER → 2022-12-12 | Outpatient (CLI) | payer MEDICARE, BC ==
[~2022-12-12] MED LIST changes: +FUROSEMIDE 10 MG/ML 2 ML VIAL IV ONE; -LACTATED RINGERS 1,000 ML IV SCH
--- NOTE | 2022-12-12 14:40 | NM ---
EXAMINATION TYPE: NM lasix renogram DATE OF EXAM: 12/12/2022 COMPARISON: NONE HISTORY: Post left ureteral stent removal Following administration of 9.58 mCi Tc 99m MAG3 with 20mg Lasix. Immediate images post injection FINDINGS: Left: 49.0 %. Right: 51.0 %. Max renal flow left: 9.5 minutes. Max renal flow right: 5.5 minutes. Satisfactory accumulation of radiotracer within both renal collecting systems. After the administrati on of Lasix, there is prompt excretion from right collecting system. There is mild delay in uptake an d excretion of the left kidney T 1/2 left: 25.1 minutes. T 1/2 right: 12.7 minutes. IMPRESSION: 1. Split renal function 49% on the left and 51% on the right. 2. Time/activity curve on the left demonstrates mild delayed uptake and excretion of the left kidney.
== END | disposition home or self-care (01) ==
LOC: RADNMMAIN 12:45
PROVIDERS: ATTEND Surgery
DX: N13.1 Hydronephrosis with ureteral stricture, not elsewhere classified (principal); Z46.6 Encounter for fitting and adjustment of urinary device
CPT/HCPCS: 78708; A9562

== ENCOUNTER → 2023-02-09 | Outpatient (CLI) | payer MEDICARE, BC ==
--- NOTE | 2023-02-09 08:30 | MM ---
Reason for Exam: Clinical finding. Last mammogram was performed 1 year(s) and 3 month(s) ago. Patient History: Menarche at age 14. First Full-Term at age 21. Postmenopausal. Other cancer, age 61. Hormonal Contraceptives for 1 month. Maternal cousin had breast cancer. Maternal aunt had breast cancer, age 50. Maternal uncle had breast cancer. Mother had breast cancer, age 50. Risk Values: Shadia 5 year model risk: 3.0%. NCI Lifetime model risk: 9.9%. Prior Study Comparison: 12/04/2009 Bilateral Screening Mammogram, [facility]. 01/23/2011 Bilateral Screening Mammogram, [facility]. 08/19/2012 Bilateral Screening Mammogram, [facility]. 10/06/2013 Bilateral Screening Mammogram, [facility]. 11/01/2014 Bilateral Screening Mammogram, [facility]. 02/25/2016 Bilateral Screening Mammogram, [facility]. 07/28/2017 Bilateral Screening Mammogram, [facility]. 08/09/2018 Bilateral Screening Mammogram, [facility]. 06/08/2020 Bilateral Screening Mammogram, [facility]. 11/11/2021 Bilateral Screening Mammogram, [facility]. Tissue Density: The breast tissue is heterogeneously dense. This may lower the sensitivity of mammography. Findings: Analyzed By CAD. Benign-appearing vascular calcification bilaterally is redemonstrated. No suspicious new mass or distortion in either breast. Overall Assessment: Negative, BI-RAD 1 Management: Screening Mammogram of both breasts in 1 year. A clinical breast exam by your physician is recommended on an annual basis and results should be correlated with mammographic findings. This exam should not preclude additional follow-up of suspicious palpable abnormalities. Results were given to the patient verbally at the time of exam. Electronically signed and approved by: Dominguez Ojeda M.D.
--- NOTE | 2023-02-09 11:14 | BD ---
EXAMINATION TYPE: Axial Bone Density DATE OF EXAM: 02/09/2023 CLINICAL HISTORY: 67 years old Female. ICD-10 CODE: Z78.0 POST MENOPAUSAL Height: 5 ft 5 in Weight: 171 Comparison: Prior DEXA bone scan 2020 FRAX RISK QUESTIONS: Alcohol (3 or more units per day): no Family History (Parent hip fracture): no Glucocorticoids (More than 3mos): yes (Ex: prednisone, prednisolone, methylprednisolone, dexamethasone, and hydrocortisone). History of Fracture in Adulthood: no Secondary Osteoporosis: 1. Type 1 Diabetes: no 2. Hyperthyroidism: no 3. Menopause before 45: yes 4. Malnutrition: no 5. Chronic liver disease: no Rheumatoid Arthritis: no Current Tobacco Use: no RISK FACTORS HISTORY OF: Surgery to Spine/Hip(right/left)/Wrist (right/left): no Family History of Osteoporosis: yes Active: yes Diet low in dairy products/other sources of calcium: no Postmenopausal woman: yes Take estrogen and/or progesterone medications: no Lost more than 2 inches in height since high school no Frequent falls: no Poor Health: good Hyperparathyroidism: no Adrenal Insufficiency: no MEDICATIONS: Additional Medications: norco Additional History: lymphoma 2021 chemo EXAM MEASUREMENTS: Bone mineral densitometry was performed using the [employer]ellan System. Bone mineral density as measured about the Lumbar spine is: ----- L1-L4(G/cm2): 1.101 T Score Values are as follows: ----- L1: -1.6 ----- L2: -1.1 ----- L3: 1.0 ----- L4: -1.2 ----- L1-L4: -0.7 Z Score Values are as follows: ----- L1: -0.4 ----- L2: 0.1 ----- L3: 2.2 ----- L4: 0.0 ----- L1-L4: 0.6 Bone mineral density has: decreased -4.8 % since study of 2020 Bone mineral density about the R hip (g/cm2): 0.761 Bone mineral density about the L hip (g/cm2): 0.805 T Score values are as follows: -----R Neck: -2.0 -----L Neck: -1.7 -----R Total: -1.9 -----L Total: -1.7 Z Score values are as follows: -----R Neck: -0.7 -----L Neck: -0.4 -----R Total: -0.9 -----L Total: -0.6 Bone mineral density has: decreased -4.4 since study 2020 FRAX%s: The graph provided illustrates a 18.1 % chamce for a major osteoporotic fx and a 3.1 % chance for the hips probability for a fx in 10 years time. IMPRESSION: Osteopenia (T Score between -2.5 and -1). There is slightly increased risk of fracture and the patient may be considered for treatment. Re-Screen 2-5 years. NOTE: T-SCORE=SD OF THE YOUNG ADULT MEAN.
== END | disposition home or self-care (01) ==
LOC: RADMAMWWP 07:54
PROVIDERS: ATTEND Family Medicine
DX: R92.2 Inconclusive mammogram (principal); M85.89 Other specified disorders of bone density and structure, multiple sites; Z80.3 Family history of malignant neoplasm of breast; Z78.0 Asymptomatic menopausal state
CPT/HCPCS: 77080; 77066; G0279; 77062

== ENCOUNTER → 2023-05-13 | Outpatient (CLI) | payer MEDICARE, BC ==
--- NOTE | 2023-05-13 09:52 | XR ---
EXAMINATION TYPE: XR abdomen 2V DATE OF EXAM: 05/13/2023 COMPARISON: NONE HISTORY: Pain TECHNIQUE: One view abdominal series FINDINGS: The osseous structures are intact. The bowel gas pattern is nonspecific. Lung bases are clear. Calc ified phleboliths pelvis. There is moderate arthropathy is bilaterally hypertrophic changes of the ac etabulum. Correlate for femoral acetabular impingement. The multiple calcifications in a linear pattern suspicious for multiple distal ureteral calculi rangi ng in size from 1 mm 3 mm. Hypertrophic changes of the spine. IMPRESSION: 1. Nonspecific abdomen. Findings are suspicious for multiple distal left ureteral calculi with a ma ximal dimension of 3 mm.
== END | disposition home or self-care (01) ==
LOC: RADXRMAIN 09:19
PROVIDERS: ATTEND Family Medicine
DX: R16.1 Splenomegaly, not elsewhere classified (principal); R10.9 Unspecified abdominal pain
CPT/HCPCS: 74019

== ENCOUNTER → 2023-06-18 | Outpatient (CLI) | payer MEDICARE, BC ==
--- NOTE | 2023-06-18 10:14 | XR ---
EXAMINATION TYPE: XR Hip Bilateral Complete DATE OF EXAM: 06/18/2023 7:29 AM INDICATION: Patient age:Female; 68 years old; Reason for study: M25.552; COMPARISON: None. TECHNIQUE: The bilateral hips were examined in the frontal and lateral projections FINDINGS: No evidence for acute process, joint dislocation or significant soft tissue swelling. Osteo phyte formation of the superior acetabulum of the hips. There is joint space narrowing bilaterally. IMPRESSION: 1. No evidence for acute process. 2. Moderate bilateral hip osteoarthrosis.
== END | disposition home or self-care (01) ==
LOC: RADXRMAIN 07:05
PROVIDERS: ATTEND Family Medicine
DX: M16.0 Bilateral primary osteoarthritis of hip (principal)
CPT/HCPCS: 73521

== ENCOUNTER → 2024-02-11 | Outpatient (CLI) | payer MEDICARE, BC ==
--- NOTE | 2024-02-11 07:37 | MM ---
Reason for Exam: Additional evaluation requested from prior study. Last screening mammogram was performed 12 month(s) ago. Patient History: Menarche at age 14. First Full-Term at age 21. Postmenopausal. Other cancer, age 61. Hormonal Contraceptives for 1 month. Maternal cousin had breast cancer. Maternal aunt had breast cancer, age 50. Maternal uncle had breast cancer. Maternal cousin (yes) had breast cancer. Maternal aunt had breast cancer at or over age 50. Maternal cousin had breast cancer. Mother had breast cancer, age 50. Risk Values: Shadia 5 year model risk: 3.0%. NCI Lifetime model risk: 9.5%. Prior Study Comparison: 07/28/2017 Bilateral Screening Mammogram, [facility]. 08/09/2018 Bilateral Screening Mammogram, [facility]. 06/08/2020 Bilateral Screening Mammogram, [facility]. 11/11/2021 Bilateral Screening Mammogram, [facility]. 02/09/2023 Bilateral MG 3D diag mammo w/cad MOE, [facility]. Tissue Density: The breasts are heterogeneously dense, which may obscure small masses. Findings: Analyzed By CAD. No new suspicious masses, calcifications or distortions. Overall Assessment: Negative, BI-RAD 1 Management: Screening Mammogram of both breasts in 1 year. Results were given to the patient verbally at the time of exam. Patient should continue monthly self-breast exams. A clinical breast exam by your physician is recommended on an annual basis. This exam should not preclude additional follow-up of suspicious palpable abnormalities. Note on Shadia scores and lifetime risk: 1. A Shadia score greater than 3% is considered moderate risk. If this is the case, consider specialist referral to assess eligibility for a risk reducing agent. 2. If overall lifetime risk for the development of breast cancer is 20% or higher, the patient may qualify for future screening with alternating mammogram and breast MRI. Electronically signed and approved by: Aayush Harvey DO
== END | disposition home or self-care (01) ==
LOC: RADMAMWWP 06:56
PROVIDERS: ATTEND Family Medicine
DX: R92.333 Mammographic heterogeneous density, bilateral breasts (principal); Z78.0 Asymptomatic menopausal state; Z85.3 Personal history of malignant neoplasm of breast; Z80.3 Family history of malignant neoplasm of breast
CPT/HCPCS: 77066; G0279; 77062

== ENCOUNTER → 2024-02-17 | Outpatient (CLI) | payer MEDICARE, BC ==
--- NOTE | 2024-02-17 11:51 | XR ---
EXAMINATION TYPE: XR chest 2V DATE OF EXAM: 02/17/2024 COMPARISON: 03/17/2017 TECHNIQUE: PA and lateral views submitted. HISTORY: Cough FINDINGS: The lungs are clear and there is no pneumothorax, pleural effusion, or focal pneumonia. Heart size normal and no overt failure. Osseous structures demonstrate hypertrophic and degenerative changes of the spine. Portacatheter see the tip overlying the SVC. COPD. IMPRESSION: 1. No acute process.
== END | disposition home or self-care (01) ==
LOC: RADXRMAIN 11:19
PROVIDERS: ATTEND Family Medicine
DX: J40 Bronchitis, not specified as acute or chronic (principal); J18.9 Pneumonia, unspecified organism
CPT/HCPCS: 71046

== ENCOUNTER → 2024-12-09 | Outpatient (CLI) | payer MEDICARE, BC ==
--- NOTE | 2024-12-09 08:41 | USB ---
Reason for Exam: Clinical finding. Indicated Problems: Lump or thickening of the right side (size 5). Patient History: Menarche at age 14. First Full-Term at age 21. Postmenopausal. Other cancer, age 61. Hormonal Contraceptives for 1 month. Maternal cousin had breast cancer, age 45. Maternal aunt had breast cancer, age 50. Maternal uncle had breast cancer, age 60. Maternal cousin (yes) had breast cancer. Maternal aunt had breast cancer at or over age 50. Maternal cousin had breast cancer. Mother had breast cancer, age 50. Risk Values: Shadia 5 year model risk: 3.0%. NCI Lifetime model risk: 9.1%. Technique: Method: Targeted. Doppler: Color. Patient Position: Supine. Prior Study Comparison: 11/11/2021 Bilateral Screening Mammogram, [facility]. 02/09/2023 Bilateral MG 3D diag mammo w/cad MOE, [facility]. 02/11/2024 Bilateral MG 3D diag mammo w/cad MOE, [facility]. Findings: The area of palpable concern of the right breast, the axilla of the right breast and the retroareolar of the right breast were scanned. Target ultrasound right breast site of palpable abnormality. No solid or cystic masses are identified.. Overall Assessment: Negative, BI-RAD 1 Management: Screening Mammogram of both breasts in 1 year. Return to routine follow-up. Manage patient's symptoms palpable abnormality right breast and bilateral diffuse pain clinically. A clinical breast exam by your physician is recommended on an annual basis and results should be correlated with mammographic findings. This exam should not preclude additional follow-up of suspicious palpable abnormalities. Results were given to the patient verbally at the time of exam. [facility], , 12/09/2024 8:38 AM. Electronically signed and approved by: Dominguez Ojeda M.D.
== END | disposition home or self-care (01) ==
LOC: RADMAMWWP 07:46
PROVIDERS: ATTEND Family Medicine
DX: N63.0 Unspecified lump in unspecified breast (principal); Z78.0 Asymptomatic menopausal state; Z80.3 Family history of malignant neoplasm of breast
CPT/HCPCS: 77066; 76642; G0279; 77062

== ENCOUNTER → 2025-05-19 | Outpatient (CLI) | payer MEDICARE, BC ==
[2025-05-19 10:23] LABS: HCT 38.3 % (37.2-46.3); HGB 12.9 g/dL (12.0-15.0); MCH 30.7 pg (27.0-32.0); MCHC 33.7 g/dL (32.0-37.0); MCV 91.2 FL (80.0-97.0); NRBC Per 100 WBC 0 X 10*3/uL (0.00-0.01); Platelet Count 249 X 10*3/uL (140-440); WBC 4.28 X 10*3/uL (4.50-10.00)
[2025-05-19 10:52] LABS: ALT 14 U/L (8-44); AST 24 U/L (13-35); Albumin 4.4 g/dL (3.8-4.9); Alkaline Phosphatase 86 U/L (41-126); BUN/Creat Ratio 20.14 Ratio (12.00-20.00); Blood Urea Nitrogen 14.1 mg/dL (9.0-27.0); Calcium 9.3 mg/dL (8.7-10.3); Carbon Dioxide 23.9 mmol/L (21.6-31.8); Chloride 104 mmol/L (96-109); Chol/HDL Ratio 3.57 Ratio; Globulin 2.1 g/dL (1.6-3.3); Glucose 96 mg/dL (70-110); Potassium 4.2 mmol/L (3.5-5.5); Sodium 138 mmol/L (135-145); Total Bilirubin 0.4 mg/dL (0.3-1.2); Total Protein 6.5 g/dL (6.2-8.2)
[2025-05-19 15:02] LABS: Mumps Virus IgG Ab Interp Positive (Negative); Mumps Virus IgG Antibody 2.9 AI
== END | disposition home or self-care (01) ==
LOC: LABWHC1 08:05
PROVIDERS: ATTEND Family Medicine
DX: C85.90 Non-Hodgkin lymphoma, unspecified, unspecified site (principal); J43.9 Emphysema, unspecified; M54.50 Low back pain, unspecified; D89.89 Other specified disorders involving the immune mechanism, not elsewhere classified; E53.8 Deficiency of other specified B group vitamins; I10 Essential (primary) hypertension; E55.9 Vitamin D deficiency, unspecified
CPT/HCPCS: 36415; 80053; 80061; 82306; 83036; 84443; 85027; 86735; 86762; 86765

== ENCOUNTER → 2025-06-21 | Outpatient (CLI) | payer MEDICARE, BC ==
--- NOTE | 2025-06-21 09:19 | CT ---
EXAMINATION TYPE: CT heart w calcium score DATE OF EXAM: 06/21/2025 COMPARISON: CT chest abdomen and pelvis 06/20/2022 CLINICAL INDICATION: Female, 70 years old with history of E78.00; [facility], coronary calcium screening. hi cholestrol TECHNIQUE: Prospective Gating was used. Slice thickness: 3mm. Density threshold (HU): 130, Pixel threshold: 3, Algorithm: discrete. CT DLP: 67.[address] CTDI: mGy Automated exposure control for dose reduction was used. FINDINGS: CT CALCIUM SCORING Coronary calcium is a marker for plaque (fatty deposits) in a blood vessel or atherosclerosis (harden ing of the arteries). The presence and amount of calcium detected in a coronary artery by the CT sca n, indicates the presence and amount of atherosclerotic plaque. These calcium deposits appear years before the development of heart disease symptoms such as chest pain and shortness of breath. A calcium score is computed for each of the coronary arteries based upon the volume and density of th e calcium deposits. This can be referred to as your calcified plaque burden. It does not correspond directly to the percentage of narrowing in the artery but does correlate with the severity of the un derlying coronary atherosclerosis. RESULTS Region: LM Calcium Score ([place]): 0 Volume (mm3): 0 Mass (g): 0 Region: RCA Calcium Score ([place]): 0 Volume (mm3): 0 Mass (g): 0 Region: LAD Calcium Score ([place]): 70.2 Volume (mm3): 64.42 Mass (g): 21.47 Region: CX Calcium Score ([place]): 0 Volume (mm3): 0 Mass (g): 0 Region: PDA Calcium Score ([place]): 0 Volume (mm3): 0 Mass (g): 0 Total: Calcium Score ([place]): 70.2 Volume (mm3): 64.42 Mass (g): 21.47 TOTAL CALCIUM SCORE: 70.2 Partial visualization of central venous catheter terminating in the mid SVC. Atherosclerotic calcific ation of the aorta and its branches. Trace pericardial effusion. Small hiatal hernia. Anterior osteop hytosis of the thoracic spine. IMPRESSION: Calcium Score: 11-100 Implication: Definite, at least mild atherosclerotic plaque Risk of Coronary Artery Disease: Mild or minimal coronary narrowings likely. CALCIUM SCORE IMPLICATION RISK OF C ORONARY ARTERY DISEASE 0 No identifiable plaque Very low, generally less than 5% 1-10 Minimal identifiable plaque Very unlikely, less than 10% 11-100 Definite, at least mild atherosclerotic plaque Mild or m inimal coronary narrowings likely 101-400 Definite, at least moderate atherosclerotic plaque Mild coronary ar cecilia disease highly likely, significant narrowing possible 401 or Higher Extensive atherosclerotic plaque High lik elihood of at least one significant coronary narrowing [facility], , 06/21/2025 9:16 AM
== END | disposition home or self-care (01) ==
LOC: RADCTMAIN 07:55
PROVIDERS: ATTEND Family Medicine
DX: Z13.6 Encounter for screening for cardiovascular disorders (principal); E78.00 Pure hypercholesterolemia, unspecified
CPT/HCPCS: 75571